=== PATIENT | male | born 1930 | race Caucasian/White ===

== ENCOUNTER → 2017-02-28 | Outpatient (CLI) | payer MEDICARE ==
[2017-02-28 13:32] LABS: AUTOMATED NEUTROPHIL # 3.8 TH/MM3 (1.8-7.7); BASOPHIL % 0.7 % (0.0-2.0); EOSINOPHIL # 0.2 TH/MM3 (0-0.4); EOSINOPHIL % 2.8 % (0.0-4.0); HEMATOCRIT 42.8 % (39.0-51.0); HEMO FLAGS DIFF FINAL; LYMPH % 21.9 % (9.0-44.0); LYMPHOCYTE # 1.2 TH/MM3 (1.0-4.8); MEAN CELL VOLUME 88.6 FL (80.0-100.0); MEAN CORPUSCULAR HEMOGLOBIN 29.6 PG (27.0-34.0); MEAN CORPUSCULAR HGB CONC 33.4 % (32.0-36.0); MONO % 7.6 % (0.0-8.0); PLATELET COUNT 180 TH/MM3 (150-450); RED BLOOD COUNT 4.83 MIL/MM3 (4.50-5.90); RED CELL DISTRIBUTION WIDTH 14.2 % (11.6-17.2); WHITE BLOOD COUNT 5.6 TH/MM3 (4.0-11.0)
[2017-02-28 13:54] LABS: ALT (GPT) 26 U/L (12-78); AMYLASE 67 U/L (25-115); ANION GAP 5 MEQ/L (5-15); AST (GOT) 21 U/L (15-37); BICARBONATE 29.9 MEQ/L (21.0-32.0); BLOOD UREA NITROGEN 20 MG/DL (7-18); CHLORIDE 104 MEQ/L (98-107); GLOMERULAR FILTRATION RATE 52 ML/MIN (>89); GLUCOSE,FASTING 96 MG/DL (74-99); POTASSIUM 4.2 MEQ/L (3.5-5.1); SODIUM (NA) 139 MEQ/L (136-145)
[2017-02-28 14:02] LABS: ALKALINE PHOSPHATASE 89 U/L (45-117); HDL CHOLESTEROL 50.8 MG/DL (40.0-60.0); LDL CHOLESTEROL 119 MG/DL (0-99); TOTAL BILIRUBIN ADULT 0.8 MG/DL (0.2-1.0)
== END ==
LOC: PLAB 08:41
PROVIDERS: ATTEND Family Medicine
DX: R63.4 Abnormal weight loss (principal); E78.2 Mixed hyperlipidemia; R53.83 Other fatigue; R10.84 Generalized abdominal pain
CPT/HCPCS: 36415; 80053; 80061; 82150; 83690; 84443; 85025

== ENCOUNTER → 2017-03-09 | Outpatient (CLI) | payer MEDICARE ==
[2017-03-09 16:53] LABS: APTT (PATIENT) 28.6 SEC (24.3-30.1); PROTHROMBIN TIME - PATIENT 11.3 SEC (9.8-11.6)
[2017-03-09 19:14] LABS: AUTOMATED NEUTROPHIL # 4.4 TH/MM3 (1.8-7.7); BASOPHIL % 0.8 % (0.0-2.0); EOSINOPHIL # 0.1 TH/MM3 (0-0.4); EOSINOPHIL % 2.3 % (0.0-4.0); HEMATOCRIT 42.2 % (39.0-51.0); HEMO FLAGS DIFF FINAL; LYMPH % 15.6 % (9.0-44.0); LYMPHOCYTE # 0.9 TH/MM3 (1.0-4.8); MEAN CELL VOLUME 87.8 FL (80.0-100.0); MEAN CORPUSCULAR HEMOGLOBIN 29.6 PG (27.0-34.0); MEAN CORPUSCULAR HGB CONC 33.7 % (32.0-36.0); MONO % 8.6 % (0.0-8.0); NEUT % 72.7 % (16.0-70.0); PLATELET COUNT 218 TH/MM3 (150-450); RED CELL DISTRIBUTION WIDTH 13.9 % (11.6-17.2); WHITE BLOOD COUNT 6.1 TH/MM3 (4.0-11.0)
== END ==
LOC: PLAB 14:53
PROVIDERS: ATTEND Family Medicine
DX: K86.9 Disease of pancreas, unspecified (principal); E78.2 Mixed hyperlipidemia; R63.4 Abnormal weight loss; R53.83 Other fatigue; R10.84 Generalized abdominal pain; R01.2 Other cardiac sounds
CPT/HCPCS: 36415; 85025; 85610; 85730; 86301

== ENCOUNTER 2017-03-15 06:40 | Day surgery (SDC) | payer MEDICARE ==
[~2017-03-15] VITALS: Ht 177.8 cm; Wt 68.2 kg
[2017-03-15] VITALS (9 sets, daily range): BP systolic 77–101; BP diastolic 51–67; PULSE 58–95; RESP 18–20; TEMP 97.5–98.4; O2SAT 90–98
[2017-03-15] MEDS ORDERED: LIDOCAINE HCL 1% 20 ML VIAL ONE (08:05)
[2017-03-15] MEDS ORDERED: SODIUM CHLORIDE 2 ML FLUSH PRN IV FLUSH (08:15)
[2017-03-15] MEDS ORDERED: SODIUM CHLOR 0.9% 1000 ML IV SCH (08:15)
[2017-03-15] MEDS ORDERED: MIDAZOLAM HCL 5 MG/5 ML VIAL ONE (08:18)
[2017-03-15] MEDS ORDERED: SODIUM CHLORIDE 2 ML FLUSH BID IV FLUSH SCH (09:00)
--- NOTE | 2017-03-15 09:43 | PD.RAD ---
Post CT Procedure Prog Note Pre Procedure Diagnosis: (1) Liver masses (2) Pancreatic mass Post Procedure Diagnosis: (1) Liver masses (2) Pancreatic mass Procedure Date: Mar 15, 2017 Supervising Radiologist: Demario Yadav JR Anesthesia: Conscious Sedation Plan of Activity Patient to Unit: ROPU Patient Condition: Good See PACS Report for procedural detail/treatment Biopsy Imaging Guidance: CT Biopsy Procedure: Liver Specimen: Core Biopsy Findings: 3 core samples of left lobe hepatic lesion in this patient with multiple masses. Plan D/C home in 4 hours. F/U with Dr Jimmie Yadav Jr.,Demario Win MD Mar 15, 2017 09:43
[2017-03-15] MEDS ORDERED: ACETAMINOPHEN 500 MG CPLT PO ONE (11:15)
[2017-03-15] MEDS ORDERED: ONDANSETRON HCL 4 MG/2 ML VIAL IV PUSH ONE (11:15)
--- NOTE | 2017-03-15 15:56 | RADRPT ---
EXAM DATE/TIME: 03/15/2017 08:59 [facility] COMPARISON: No previous studies available for comparison. INDICATIONS : Multiple liver masses. SEDATION TIME: 30 minutes BIOPSY SITE: Right upper quadrant MEDICATION(S): 1.) 1.5 mg midazolam (Versed) IV 2.) 75 mcg fentanyl (Sublimaze) IV DEVICE(S): 1.) 19 gauge micropuncture introducer 2.) 20 gauge Temno core biopsy needle MEDICAL HISTORY : None. SURGICAL HISTORY : None. ENCOUNTER: Initial ACUITY: 1 day PAIN SCORE: 0/10 LOCATION: Right upper quadrant A total of three core specimen(s) were obtained and sent to the laboratory for pathologic evaluation. PROCEDURE: 1. CT guided liver biopsy. Prior to the procedure informed consent was obtained. Any appropriate prior imaging studies were rev iewed. The biopsy was difficult given the location of the lesions. A low-density lesion involving the left lobe of the liver was targeted during the biopsy. Using automated exposure control and adjustment of the mA and/or kV according to patient size, radiat ion dose was kept as low as reasonably achievable to obtain optimal diagnostic quality images. DICOM format image data is available electronically for review and comparison. The site was prepped in a sterile fashion. Full sterile technique was used, including cap, mask, abdoulaye rile gloves and gown and a large sterile sheet. Hand hygiene and 2% chlorhexidine and/or betadine/al cohol prep was utilized per protocol for cutaneous antisepsis. The skin and subcutaneous tissues wer e infiltrated with local anesthetic solution. With CT guidance the previously identified target was localized. Biopsy was performed using the presc ribed needle as above. Adequate hemostasis was obtained with compression at the puncture site. Follow-up CT scan reveals no hemorrhage. The patient tolerated the procedure well and there were no complications. The patient was returned to the Radiology Outpatient Unit in stable condition. CONCLUSION: Uncomplicated CT guided biopsy of a low-density lesion involving the left lobe of the liver in this p atient with multiple hepatic masses. Demario Yadav Jr., MD on March 15, 2017 at 15:53 Board Certified Radiologist. This report was verified electronically.
== END 2017-03-15 14:00 | disposition home or self-care (01) ==
LOC: HRAD 06:40 → HRIP 06:41 → HRAD 14:00
PROVIDERS: ATTEND Family Medicine
DX: C22.9 Malignant neoplasm of liver, not specified as primary or secondary (principal); K86.9 Disease of pancreas, unspecified; E78.2 Mixed hyperlipidemia; R53.83 Other fatigue; R39.11 Hesitancy of micturition; N40.0 Benign prostatic hyperplasia without lower urinary tract symptoms
CPT/HCPCS: 47000; 77012; 88307; 88341; 88342; J2250; J2405; J3010; J7030

== ENCOUNTER 2017-04-25 06:59 | Day surgery (SDC) | payer MEDICARE ==
[~2017-04-25] VITALS: Ht 177.8 cm; Wt 65.9 kg
[2017-04-25] VITALS (8 sets, daily range): BP systolic 89–127; BP diastolic 54–78; PULSE 80–118; RESP 20; TEMP 97.5–98.2; O2SAT 93–100
[2017-04-25] MEDS ORDERED: OXYC1CAP PO (07:12)
[2017-04-25] MEDS ORDERED: SODIUM CHLORIDE 0.9% 1000 ML IV SCH (07:30)
[2017-04-25] MEDS ORDERED: CHLORHEXIDINE GLUCONATE 2 % 1 PACK (2 CLOTHS) TOPICAL SCH (07:30)
[2017-04-25] MEDS ORDERED: POVIDONE IODINE 5% (ANTISEPSIS KIT) 4 APPLICATIONS EACH NARE SCH (07:30)
[2017-04-25] MEDS: ceFAZolin 2 GM PREMIX 50 ML - implanted port/tunneled catheter insertion IV SCH ×2 (07:41→09:53)
[2017-04-25 07:42] LABS: AUTOMATED NEUTROPHIL # 6.6 TH/MM3 (1.8-7.7); BASOPHIL # 0.1 TH/MM3 (0-0.2); BASOPHIL % 0.6 % (0.0-2.0); EOSINOPHIL # 0.2 TH/MM3 (0-0.4); EOSINOPHIL % 2.6 % (0.0-4.0); HEMATOCRIT 37.1 % (39.0-51.0); HEMO FLAGS DIFF FINAL; LYMPH % 12.2 % (9.0-44.0); LYMPHOCYTE # 1.1 TH/MM3 (1.0-4.8); MEAN CELL VOLUME 88.7 FL (80.0-100.0); MEAN CORPUSCULAR HEMOGLOBIN 29.5 PG (27.0-34.0); MEAN CORPUSCULAR HGB CONC 33.3 % (32.0-36.0); MONO % 7.8 % (0.0-8.0); NEUT % 76.8 % (16.0-70.0); PLATELET COUNT 267 TH/MM3 (150-450); RED BLOOD COUNT 4.18 MIL/MM3 (4.50-5.90); RED CELL DISTRIBUTION WIDTH 15.2 % (11.6-17.2); WHITE BLOOD COUNT 8.7 TH/MM3 (4.0-11.0)
[2017-04-25] MEDS: VANCOMYCIN 1000 MG/NS 250 ML - implanted port/tunneled catheter IV SCH ×4 (07:42→09:53)
[2017-04-25 07:52] LABS: APTT (PATIENT) 26.8 SEC (24.3-30.1); PROTHROMBIN TIME - PATIENT 11.6 SEC (9.8-11.6)
[2017-04-25] MEDS ORDERED: MIDAZOLAM HCL 2 MG/2 ML VIAL ONE (08:42)
[2017-04-25] MEDS ORDERED: LIDOCAINE 1%/EPINEPHrine 1:100,000 SOLN 20 ML VIAL ONE (08:52)
[2017-04-25] MEDS ORDERED: SODIUM CHLORIDE 0.9% FLUSH 10 ML FLUSH IVF PRN (09:45)
--- NOTE | 2017-04-25 09:47 | PD.RAD ---
Post Procedure Progress Note Pre Procedure Diagnosis: (1) Pancreatic mass Post Procedure Diagnosis: (1) Pancreatic mass Procedure Date: Apr 25, 2017 Supervising Radiologist: Jesus Alamo Proceduralist/Assist: RT Wander(R), RT Holly(R) Anesthesia: Conscious Sedation Plan of Activity Patient to Unit: ROPU Patient Condition: Good See PACS Report for procedural detail/treatment Central Venous Access Device Procedure 1 Right Internal Jugular Infusaport Placement single lumen Jesus Alamo MD Apr 25, 2017 09:47
--- NOTE | 2017-04-25 09:53 | RADRPT ---
EXAM DATE/TIME: 04/25/2017 08:43 [facility] COMPARISON: No previous studies available for comparison. INDICATIONS : Patient with metastatic pancreatic cancer in need of [id number] placement. MEDICAL HISTORY : HLD SURGICAL HISTORY : Colonoscopy, Liver biopsy ENCOUNTER: Initial ACUITY: 4-6 months PAIN SCORE: 2/10 LOCATION: Abdomen FLUORO TIME: 0.4 minutes IMAGE SERIES: 1 SEDATION TIME: 30 minutes ACCESS: Right internal jugular vein SEDATION: 1.) 1.5 mg midazolam (Versed) IV 2.) 75 mcg fentanyl (Sublimaze) IV Prophylactic antibiotics were administered with appropriate pre-procedure timing. Vancomycin within 2 hours of procedure, Ancef (or alternative) within 1 hour of procedure. DEVICE: 1. 8 [place] single lumen Smart power port with vortex PROCEDURE : 1. Continuous pulse oximetry and EKG monitoring. 2. Intravenous conscious sedation. 3. Ultrasound guidance for venous access. 4. Fluoroscopic guided implantable central venous port placement. The patient was placed supine. The neck was prepped in sterile fashion. Full sterile technique was u sed, including cap, mask, sterile gloves and gown, and a large sterile sheet. Hand hygiene and 2% ch lorhexidine Betadine was utilized per protocol for cutaneous antisepsis with appropriate dry time for site. Sterile gel and sterile probe cover were utilized for ultrasound guidance. The skin and sub cutaneous tissues were infiltrated with local anesthetic solution. Under direct ultrasound guidance, central venous access was accomplished in the targeted vessel. The ultrasound images depicting access guidance were stored and saved to PACS for permanent record. A s ubcutaneous pocket was created using blunt dissection. The port was introduced to the pocket. The c atheter tubing was fed through a subcutaneous tunnel to the venotomy site. The catheter tubing was c ut to a suitable length and then was introduced through a valved Peel-Away sheath and positioned with catheter tubing tip at the cavo-atrial junction level. The pocket incision was closed with subcutic ular Vicryl suture. Steri-Strips were applied. The port was flushed and locked with heparin solutio n per protocol. Sterile dressing was applied to the site. The patient tolerated the procedure well. Conscious sedation was performed with the prescribed dosages and duration as above in the presence of an independent trained radiology nurse to assist in the monitoring of the patient. EKG and oximetry remained stable throughout the procedure. The patient tolerated the procedure well and there were no complications. The patient was sent to post anesthesia recovery in stable condition. CONCLUSION: Uncomplicated ultrasound and fluoroscopic guided implanted central venous port catheter placement as described in detail above. An 8 Venezuelan Power port was placed. Jesus Alamo MD on April 25, 2017 at 9:51 Board Certified Radiologist. This report was verified electronically.
== END 2017-04-25 11:40 | disposition home or self-care (01) ==
LOC: HRIP 06:59 → HROP 06:59
PROVIDERS: ATTEND Internal Medicine
DX: Z45.2 Encounter for adjustment and management of vascular access device (principal); C25.9 Malignant neoplasm of pancreas, unspecified; E78.5 Hyperlipidemia, unspecified
CPT/HCPCS: 36561; 76937; 77001; 85025; 85610; 85730; 99152; 99153; C1788; J0690; J1642; J2250; J3010; J3370; J7030; J7050

== ENCOUNTER 2017-05-04 15:48 | Inpatient (IN) | payer MEDICARE ==
[~2017-05-04] VITALS: Ht 185.4 cm; Wt 78.2 kg
[~2017-05-04 15:48] MED LIST: OXYC1CAP PO
[2017-05-04] MEDS ORDERED: IODIXANOL 320 MG/ML 10 ML VIAL (for Rad CT) IVCONTRAST ONE (15:49)
[2017-05-04 15:52] VITALS: BP 118/76; PULSE 153; RESP 16; TEMP 97.9; O2SAT 98
--- NOTE | 2017-05-04 16:07 | PD ---
HPI Chief Complaint: GI Complaint Time Seen by Provider: 16:06 Travel History International Travel<30 days: No Contact w/Intl Traveler<30days: No Traveled to known affect area: No History of Present Illness HPI 86-year-old male came to the emergency room with his family for his history of vomiting for past 3 days. Patient has been diagnosed with pancreatic cancer. His oncologist is Dr. Schafer. Patient says he has been unable to keep anything down. His last vomit was 5 minutes ago just prior to coming to the room. Patient was atrial fibrillation on the monitor. Upon asking patient did not seem to know of this diagnosis. Planing of vague abdominal pain 5 out of 10 in the midabdominal area that is diffuse. No aggravating or relieving factors. He says he had a port put in one week ago and his chemotherapies, start from tomorrow. He did not have bowel movement for past 2 days and then this morning he had a large bowel movement. PFSH Past Medical History Narrative Medical List of his past medical, surgical, social and family history is reviewed from the nursing note. Cancer: Yes (PANCREATIC CANCER) Cardiovascular Problems: No Diabetes: No Endocrine: No Genitourinary: No Hepatitis: No Hiatal Hernia: No Immune Disorder: No Musculoskeletal: No Neurologic: No Psychiatric: No Reproductive: No Respiratory: No Thyroid Disease: No Past Surgical History Abdominal Surgery: No AICD: No Cardiac Surgery: No Ear Surgery: No Endocrine Surgery: No Eye Surgery: Yes (bilateral cataract) Genitourinary Surgery: No Gynecologic Surgery: No Joint Replacement: No Pacemaker: No Thoracic Surgery: No Social History Substance Use: No Allergies-Medications (Allergen,Severity, Reaction): Coded Allergies: No Known Allergies (Unverified Allergy, Unknown, 04/25/17) patient does not take any medication Comments No known drug allergies. Reported Meds & Prescriptions Reported Meds & Active Scripts Active Reported Finasteride 5 Mg Tab 5 Mg PO DAILY Do not crush. Oxycodone (Oxycodone HCl) 5 Mg Cap 5 Mg PO Q4H PRN Narrative Medication List of his home medications reviewed from the nursing note. Review of Systems Except as stated in HPI: all other systems reviewed are Neg Gastrointestinal: Positive: Nausea, Vomiting, Abdominal Pain Physical Exam Narrative GENERAL: Awake, alert, mild distress, anxious SKIN: Focused skin assessment warm/dry. HEAD: Atraumatic. Normocephalic. EYES: Pupils equal and round. No scleral icterus. No injection or drainage. ENT: No nasal bleeding or discharge. Mucous membranes pink and moist. NECK: Trachea midline. No JVD. CARDIOVASCULAR: Irregularly irregular rhythm, tachycardia. No murmur appreciated. RESPIRATORY: No accessory muscle use. Clear to auscultation. Breath sounds equal bilaterally. GASTROINTESTINAL: Abdomen soft, non-tender, nondistended. Hepatic and splenic margins not palpable. MUSCULOSKELETAL: No obvious deformities. No clubbing. No cyanosis. No edema. NEUROLOGICAL: Awake and alert. No obvious cranial nerve deficits. Motor grossly within normal limits. Normal speech. PSYCHIATRIC: Appropriate mood and affect; insight and judgment normal. Data Data Last Documented VS Vital Signs Date Time Temp Pulse Resp B/P (MAP) Pulse Ox O2 Delivery O2 Flow Rate FiO2 05/04/17 19:05 110 18 106/86 (93) 95 Room Air 05/04/17 15:52 97.9 Orders Orders Complete Blood Count With Diff (05/04/17 16:16) Comprehensive Metabolic Panel (05/04/17 16:16) Lipase (05/04/17 16:16) Prothrombin Time / Inr (Pt) (05/04/17 16:16) Ct Abd/Pel W Iv Contrast(Rout) (05/04/17 16:16) Iv Access Insert/Monitor (05/04/17 16:16) Ecg Monitoring (05/04/17 16:16) Oximetry (05/04/17 16:16) Ondansetron Inj (Zofran Inj) (05/04/17 16:30) Sodium Chloride 0.9% Flush (Ns Flush) (05/04/17 16:30) Sodium Chlorid 0.9% 500 Ml Inj (Ns 500 M (05/04/17 16:30) Electrocardiogram (05/04/17 ) Diltiazem Inj (Cardizem Inj) (05/04/17 18:30) Iodixanol 320 Inj (Rad Ct) (Visipaque 32 (05/04/17 15:49) Sodium Chlorid 0.9% 500 Ml Inj (Ns 500 M (05/04/17 19:00) Labs Laboratory Tests Test 05/04/17 16:38 White Blood Count 9.3 TH/MM3 Red Blood Count 3.82 MIL/MM3 Hemoglobin 11.6 GM/DL Hematocrit 34.2 % Mean Corpuscular Volume 89.6 FL Mean Corpuscular Hemoglobin 30.3 PG Mean Corpuscular Hemoglobin Concent 33.8 % Red Cell Distribution Width 15.6 % Platelet Count 241 TH/MM3 Mean Platelet Volume 7.7 FL Neutrophils (%) (Auto) 90.3 % Lymphocytes (%) (Auto) 3.7 % Monocytes (%) (Auto) 5.9 % Eosinophils (%) (Auto) 0.0 % Basophils (%) (Auto) 0.1 % Neutrophils # (Auto) 8.4 TH/MM3 Lymphocytes # (Auto) 0.3 TH/MM3 Monocytes # (Auto) 0.5 TH/MM3 Eosinophils # (Auto) 0.0 TH/MM3 Basophils # (Auto) 0.0 TH/MM3 CBC Comment DIFF FINAL Differential Comment Prothrombin Time 14.7 SEC Prothromb Time International Ratio 1.5 RATIO Blood Urea Nitrogen 35 MG/DL Creatinine 1.77 MG/DL Random Glucose 138 MG/DL Total Protein 6.4 GM/DL Albumin 3.3 GM/DL Calcium Level 8.7 MG/DL Alkaline Phosphatase 274 U/L Aspartate Amino Transf (AST/SGOT) 696 U/L Alanine Aminotransferase (ALT/SGPT) 837 U/L Total Bilirubin 2.4 MG/DL Sodium Level 120 MEQ/L Potassium Level 4.8 MEQ/L Chloride Level 86 MEQ/L Carbon Dioxide Level 23.2 MEQ/L Anion Gap 11 MEQ/L Estimat Glomerular Filtration Rate 37 ML/MIN Lipase 37 U/L MDM Medical Decision Making Medical Screen Exam Complete: Yes Emergency Medical Condition: Yes Medical Record Reviewed: Yes Interpretation(s) Twelve-lead EKG is reviewed by me. A. fib, left axis deviation, poor over progression, RVR. Heart rate of 144 bpm. Differential Diagnosis Worsening pancreatic cancer, new onset A. fib with RVR, electrolyte abnormalities, small bowel obstruction Narrative Course 7:14 PM blood test results are back. Patient has significant hyponatremia and elevated LFTs. Patient was seen by Dr. Schafer and I read her note from 2016. In that note said he has metastatic pancreatic cancer. His LFTs were elevated but today it is significantly higher than before. I have ordered 20 mg of IV Cardizem given his RVR. Patient had also received 1 L of IV fluid bolus and another 500 L was orders and his blood pressure dropped a little. CT scan is pending to be read. I discussed the case with Dr. Ramirez who is covering for Dr. Hanh lundberg and as per him the management was appropriate so far. He agreed the patient needed to be admitted. I signed the case over to the oncoming physician. Admission will be pending CT scan report. Procedures EKG Prior to Arrival: No Physician Communication Physician Communication Dr. Ramirez Diagnosis Primary Impression: Vomiting Qualified Codes: R11.2 - Nausea with vomiting, unspecified Additional Impressions: Pancreatic cancer Qualified Codes: C25.7 - Malignant neoplasm of other parts of pancreas Elevated liver function tests New onset a-fib Atrial fibrillation with RVR Kalpana Valadez MD May 04, 2017 16:07
[2017-05-04] MEDS ORDERED: SODIUM CHLORIDE 0.9% FLUSH 10 ML FLUSH IV FLUSH PRN ×2 (16:30→21:15)
[2017-05-04] MEDS ORDERED: SODIUM CHLORID 0.9% 500 ML INJ 500 ML IV ONE ×2 (16:30→19:00)
[2017-05-04] MEDS ORDERED: ONDANSETRON HCL 4 MG/2 ML VIAL IVP ONE (16:30)
[2017-05-04 16:54] LABS: AUTOMATED NEUTROPHIL # 8.4 TH/MM3 (1.8-7.7); BASOPHIL % 0.1 % (0.0-2.0); HEMATOCRIT 34.2 % (39.0-51.0); HEMO FLAGS DIFF FINAL; LYMPH % 3.7 % (9.0-44.0); LYMPHOCYTE # 0.3 TH/MM3 (1.0-4.8); MEAN CELL VOLUME 89.6 FL (80.0-100.0); MEAN CORPUSCULAR HEMOGLOBIN 30.3 PG (27.0-34.0); MEAN CORPUSCULAR HGB CONC 33.8 % (32.0-36.0); MONO % 5.9 % (0.0-8.0); NEUT % 90.3 % (16.0-70.0); PLATELET COUNT 241 TH/MM3 (150-450); RED BLOOD COUNT 3.82 MIL/MM3 (4.50-5.90); RED CELL DISTRIBUTION WIDTH 15.6 % (11.6-17.2); WHITE BLOOD COUNT 9.3 TH/MM3 (4.0-11.0)
[2017-05-04 17:03] LABS: INTERNATIONAL NORMALIZED RATIO 1.5 RATIO; PROTHROMBIN TIME - PATIENT 14.7 SEC (9.8-11.6)
[2017-05-04 17:20] LABS: ALKALINE PHOSPHATASE 274 U/L (45-117); ALT (GPT) 837 U/L (12-78); ANION GAP 11 MEQ/L (5-15); AST (GOT) 696 U/L (15-37); BICARBONATE 23.2 MEQ/L (21.0-32.0); BLOOD UREA NITROGEN 35 MG/DL (7-18); CHLORIDE 86 MEQ/L (98-107); GLOMERULAR FILTRATION RATE 37 ML/MIN (>89); POTASSIUM 4.8 MEQ/L (3.5-5.1); TOTAL BILIRUBIN ADULT 2.4 MG/DL (0.2-1.0)
[2017-05-04 17:37] VITALS: BP 123/73; PULSE 134; RESP 22; O2SAT 96
[2017-05-04 17:40] LABS: SODIUM (NA) 120 MEQ/L (136-145)
[2017-05-04 18:19] VITALS: BP 119/84; PULSE 120; RESP 25; O2SAT 96
[2017-05-04] MEDS ORDERED: DILTIAZEM HCL 25 MG/5 ML VIAL IV ONE (18:30)
[2017-05-04 19:05] VITALS: BP 106/86; PULSE 110; RESP 18; O2SAT 95
[2017-05-04] MEDS ORDERED: FINA5TAB2 PO (19:08)
--- NOTE | 2017-05-04 20:05 | RADRPT ---
EXAM DATE/TIME: 05/04/2017 18:23 [facility] COMPARISON: No previous studies available for comparison. INDICATIONS : Nausea, vomiting, anorexia; history of pancreatic cancer. IV CONTRAST: 45 cc Visipaque (iodixanol) IV ORAL CONTRAST: No oral contrast ingested. RADIATION DOSE: 7.31 CTDIvol (mGy) MEDICAL HISTORY : Carcinoma, pancreas. SURGICAL HISTORY : None. ENCOUNTER: Initial ACUITY: 2 days PAIN SCALE: 4/10 LOCATION: Bilateral epigastric. TECHNIQUE: Volumetric scanning of the abdomen and pelvis was performed. Using automated exposure control and adjustment of the mA and/or kV according to patient size, radiation dose was kept as low as reasonably achievable to obtain optimal diagnostic quality images. DICOM format image data is av ailable electronically for review and comparison. FINDINGS: There appears to be a mass at the pancreatic head region. This surrounds the celiac rt lo. There are suspected enlarged lymph nodes in the noelle hepatis region. There are multiple hepat ic masses measuring up to 3.3 cm consistent with widespread metastatic disease of the liver. The sple en and adrenal glands are normal. There is a 4 mm nonobstructing left renal stone. The right kidney is unremarkable. Atherosclerotic calcifications are seen throughout the arterial system. An aneurys m is not seen. There is a mild amount of ascites seen around the liver and spleen, in the right para colic gutter region and in the pelvis. No pelvic mass is seen. There are prostatic calcifications p resent. Moderate right pleural effusion. There is a mild left pleural effusion. There are accompanying area s of suspected atelectasis seen at the posterior lower lungs being worse on the right. There is dege nerative change in the lumbar spine. There is some cystic change at the anterior aspect of the left femoral head. A suspicious bony lesion is not seen. CONCLUSION: 1. 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 There appears to be adenopathy in the upper abdomen and definite metastatic lesions in the liver. There is also ascites seen throughout the alejandro toneal cavity. 2. Moderate right pleural effusion and mild left pleural effusion. 3. 4 mm nonobstructing left renal stone. Quincy Higuera MD on May 04, 2017 at 19:52 Board Certified Radiologist. This report was verified electronically.
--- NOTE | 2017-05-04 20:36 | PD ---
Physical Exam Narrative GENERAL: Well-nourished, well-developed patient. SKIN: Warm and dry. HEAD: Normocephalic EYES: No injection or drainage. ENT: No nasal drainage noted. NECK: Supple, trachea midline. CARDIOVASCULAR: irregular rate and rhythm RESPIRATORY: no increased effort. No accessory muscle use. NEUROLOGICAL: Awake and alert. moves all extremities and sensory grossly within normal limits. Normal speech. Data Data Last Documented VS Vital Signs Date Time Temp Pulse Resp B/P (MAP) Pulse Ox O2 Delivery O2 Flow Rate FiO2 05/04/17 20:55 115 18 137/78 (97) 99 Room Air 05/04/17 15:52 97.9 Orders Orders Complete Blood Count With Diff (05/04/17 16:16) Comprehensive Metabolic Panel (05/04/17 16:16) Lipase (05/04/17 16:16) Prothrombin Time / Inr (Pt) (05/04/17 16:16) Ct Abd/Pel W Iv Contrast(Rout) (05/04/17 16:16) Iv Access Insert/Monitor (05/04/17 16:16) Ecg Monitoring (05/04/17 16:16) Oximetry (05/04/17 16:16) Ondansetron Inj (Zofran Inj) (05/04/17 16:30) Sodium Chloride 0.9% Flush (Ns Flush) (05/04/17 16:30) Sodium Chlorid 0.9% 500 Ml Inj (Ns 500 M (05/04/17 16:30) Electrocardiogram (05/04/17 ) Diltiazem Inj (Cardizem Inj) (05/04/17 18:30) Iodixanol 320 Inj (Rad Ct) (Visipaque 32 (05/04/17 15:49) Sodium Chlorid 0.9% 500 Ml Inj (Ns 500 M (05/04/17 19:00) Vital Signs (05/04/17 20:37) Diltiazem Inj (Cardizem Inj) (05/04/17 20:45) Admit Order (Ed Use Only) (05/04/17 21:06) Labs Laboratory Tests Test 05/04/17 16:38 White Blood Count 9.3 TH/MM3 Red Blood Count 3.82 MIL/MM3 Hemoglobin 11.6 GM/DL Hematocrit 34.2 % Mean Corpuscular Volume 89.6 FL Mean Corpuscular Hemoglobin 30.3 PG Mean Corpuscular Hemoglobin Concent 33.8 % Red Cell Distribution Width 15.6 % Platelet Count 241 TH/MM3 Mean Platelet Volume 7.7 FL Neutrophils (%) (Auto) 90.3 % Lymphocytes (%) (Auto) 3.7 % Monocytes (%) (Auto) 5.9 % Eosinophils (%) (Auto) 0.0 % Basophils (%) (Auto) 0.1 % Neutrophils # (Auto) 8.4 TH/MM3 Lymphocytes # (Auto) 0.3 TH/MM3 Monocytes # (Auto) 0.5 TH/MM3 Eosinophils # (Auto) 0.0 TH/MM3 Basophils # (Auto) 0.0 TH/MM3 CBC Comment DIFF FINAL Differential Comment Prothrombin Time 14.7 SEC Prothromb Time International Ratio 1.5 RATIO Blood Urea Nitrogen 35 MG/DL Creatinine 1.77 MG/DL Random Glucose 138 MG/DL Total Protein 6.4 GM/DL Albumin 3.3 GM/DL Calcium Level 8.7 MG/DL Alkaline Phosphatase 274 U/L Aspartate Amino Transf (AST/SGOT) 696 U/L Alanine Aminotransferase (ALT/SGPT) 837 U/L Total Bilirubin 2.4 MG/DL Sodium Level 120 MEQ/L Potassium Level 4.8 MEQ/L Chloride Level 86 MEQ/L Carbon Dioxide Level 23.2 MEQ/L Anion Gap 11 MEQ/L Estimat Glomerular Filtration Rate 37 ML/MIN Lipase 37 U/L MDM Supervised Visit with KAILEY: No Interpretation(s) CBC & BMP Diagram 05/04/17 16:38 Total Protein 6.4, Albumin 3.3 L, Calcium Level 8.7, Alkaline Phosphatase 274 H , Aspartate Amino Transf (AST/SGOT) 696 H, Alanine Aminotransferase (ALT/SGPT) 837 H, Total Bilirubin 2.4 H Narrative Course Signed over to me to follow CT scan and admit CT without surgical process. Patient will be admitted for rate control with atrial fibrillation, cardizem drip ordered. For hyponatremia and renal insufficiency normal saline ordered. His oncologist has already been called and patient was updated Physician Communication Physician Communication dr feldman agrees to admit Diagnosis Primary Impression: Vomiting Qualified Codes: R11.2 - Nausea with vomiting, unspecified Additional Impressions: Atrial fibrillation with RVR Elevated liver function tests New onset a-fib Pancreatic cancer Qualified Codes: C25.7 - Malignant neoplasm of other parts of pancreas Hyponatremia Admitting Information Admitting Physician Requests: Admit Darcy Marin MD May 04, 2017 20:36
[2017-05-04] MEDS ORDERED: DILTIAZEM INJ 125 MG in SODIUM CHLORIDE 0.9% INJ 100 ML IV PRN (20:45)
[2017-05-04 20:55] VITALS: BP 137/78; PULSE 115; RESP 18; O2SAT 99
[2017-05-04] MEDS ORDERED: NALOXONE HCL 0.4 MG/ML AMP IV PUSH PRN (21:15)
[2017-05-04 22:14] VITALS: BP 127/78; PULSE 99; RESP 18; O2SAT 99
--- NOTE | 2017-05-04 22:44 | HHI.HP ---
[facility] Felicia Samuel MD Admission Diagnosis afib with rvr, hyponatremia, pancreatic cancer Diagnoses: Travel History International Travel<30 Days: No Contact w/Intl Traveler <30 Da: No Traveled to Known Affected Are: No History of Present Illness hx from patient, at bedside, ER physician communication and review of med records nausea vomiting for about 3 days no blood in vomit vomiting only when he eats once or twice a day also has diffuse abdominal pain - right chest mediport placed last week supposed to have chemo start today has black patches in mouth no diarhre no back or red stool no urinary symptoms ddi not eat much never had similar vomitng episodes with pancreatic cancer diagnosis pancreatic cancer diagnosis was in 03/05/2017 was actually having pains for about 2 months before then pancreatic Ca is 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 Review of Systems Except as stated in HPI: all other systems reviewed are Neg Past Family Social History Past Medical History pancreatic cancer stage IV diagnosed 03/05/2017 hyperlipidemia Past Surgical History carpal tunnel sx - bilateral right chest mediport Allergies: Coded Allergies: No Known Allergies (Unverified Allergy, Unknown, 04/25/17) patient does not take any medication Family History mother- of cancer at age 85 uterine Social History used to smoke , quit 40yrs ago used to drink moderately, but quit 40yrs ago no drugs still driving Physical Exam Vital Signs Vital Signs Date Time Temp Pulse Resp B/P (MAP) Pulse Ox O2 Delivery O2 Flow Rate FiO2 05/04/17 22:14 99 18 127/78 (94) 99 Room Air 05/04/17 21:10 117 137/67 05/04/17 20:55 115 18 137/78 (97) 99 Room Air 05/04/17 19:05 110 18 106/86 (93) 95 Room Air 05/04/17 18:19 120 25 119/84 (96) 96 Room Air 05/04/17 17:37 134 22 123/73 (90) 96 Room Air 05/04/17 15:52 97.9 153 16 118/76 (90) 98 Physical Exam GENERAL: This is a well-nourished, well-developed patient, in no apparent distress. SKIN: No rashes, ecchymoses or lesions. Cool and dry. HEAD: Atraumatic. Normocephalic. No temporal or scalp tenderness. EYES: No scleral icterus. No injection or drainage. ENT: Nose without bleeding, purulent drainage or septal hematoma. Airway patent. NECK: Trachea midline. No JVD CARDIOVASCULAR: Regular rate and rhythm without murmurs, gallops, or rubs. RESPIRATORY: Clear to auscultation. Breath sounds equal bilaterally. No wheezes , rales, or rhonchi. GASTROINTESTINAL: Abdomen soft, non-tender, nondistended. No hepato-splenomegaly , or palpable masses. No guarding. MUSCULOSKELETAL: Extremities without clubbing, cyanosis, or edema. No calf tenderness. . NEUROLOGICAL: Awake and alert. Motor and sensory grossly within normal limits Normal speech. Laboratory Laboratory Tests Test 05/04/17 16:38 05/04/17 22:05 White Blood Count 9.3 Red Blood Count 3.82 Hemoglobin 11.6 Hematocrit 34.2 Mean Corpuscular Volume 89.6 Mean Corpuscular Hemoglobin 30.3 Mean Corpuscular Hemoglobin Concent 33.8 Red Cell Distribution Width 15.6 Platelet Count 241 Mean Platelet Volume 7.7 Neutrophils (%) (Auto) 90.3 Lymphocytes (%) (Auto) 3.7 Monocytes (%) (Auto) 5.9 Eosinophils (%) (Auto) 0.0 Basophils (%) (Auto) 0.1 Neutrophils # (Auto) 8.4 Lymphocytes # (Auto) 0.3 Monocytes # (Auto) 0.5 Eosinophils # (Auto) 0.0 Basophils # (Auto) 0.0 CBC Comment DIFF FINAL Differential Comment Prothrombin Time 14.7 Prothromb Time International Ratio 1.5 Blood Urea Nitrogen 35 Creatinine 1.77 Random Glucose 138 Total Protein 6.4 Albumin 3.3 Calcium Level 8.7 Alkaline Phosphatase 274 Aspartate Amino Transf (AST/SGOT) 696 Alanine Aminotransferase (ALT/SGPT) 837 Total Bilirubin 2.4 Sodium Level 120 Potassium Level 4.8 Chloride Level 86 Carbon Dioxide Level 23.2 Anion Gap 11 Estimat Glomerular Filtration Rate 37 Lipase 37 Result Diagram: 05/04/17 1638 05/04/17 1638 Imaging Last 48 hours Impressions Abdomen/Pelvis CT 05/04/17 1616 Signed Impressions: Service Date/Time: April 18:23 - CONCLUSION: 1. 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 There appears to be adenopathy in the upper abdomen and definite metastatic lesions in the liver. There is also ascites seen throughout the peritoneal cavity. 2. Moderate right pleural effusion and mild left pleural effusion. 3. 4 mm nonobstructing left renal stone. Quincy Higuera MD Abdomen Ultrasound 05/04/17 0000 Signed Impressions: Service Date/Time: April 22:53 - CONCLUSION: 1. Similar to what was demonstrated and reported on the CT from 4 hours ago, the liver as abnormal with findings suspicious for metastatic disease. Although the pancreas was not identified on this examination the prior study demonstrated features suspicious for a pancreas mass/neoplasm. 2. There is free fluid within the abdomen around the liver and spleen and there are bilateral pleural effusions. 3. Diffuse gallbladder wall edema. Quincy Gabriel MD Caprini VTE Risk Assessment Caprini VTE Risk Assessment: Mod/High Risk (score >= 2) Caprini Risk Assessment Model Point Value = 1 Point Value = 2 Point Value = 3 Point Value = 5 Age 41-60 Minor surgery BMI > 25 kg/m2 Swollen legs Varicose veins or History of unexplained or recurrent spontaneous Oral contraceptives or hormone replacement Sepsis (< 1 month) Serious lung disease, including pneumonia (< 1 month) Abnormal pulmonary function Acute myocardial infarction Congestive heart failure (< 1 month) History of inflammatory bowel disease Medical patient at bed rest Age 61-74 Arthroscopic surgery Major open surgery (> 45 min) Laparoscopic surgery (> 45 min) Malignancy Confined to bed (> 72 hours) Immobilizing plaster cast Central venous access Age >= 75 History of VTE Family history of VTE Factor V Leiden Prothrombin [id number] Lupus anticoagulant Anticardiolipin antibodies Elevated serum homocysteine Heparin-induced thrombocytopenia Other congenital or acquired thrombophilia Stroke (< 1 month) Elective arthroplasty Hip, pelvis, or leg fracture Acute spinal cord injury (< 1 month) Prophylaxis Regimen Total Risk Factor Score Risk Level Prophylaxis Regimen 0-1 Low Early ambulation 2 Moderate Order ONE of the following: *Sequential Compression Device (SCD) *Heparin 5000 units SQ BID 3-4 Higher Order ONE of the following medications: *Heparin 5000 units SQ TID *Enoxaparin/Lovenox 40 mg SQ daily (WT < 150 kg, CrCl > 30 mL/min) *Enoxaparin/Lovenox 30 mg SQ daily (WT < 150 kg, CrCl > 10-29 mL/min) *Enoxaparin/Lovenox 30 mg SQ BID (WT < 150 kg, CrCl > 30 mL/min) AND/OR *Sequential Compression Device (SCD) 5 or more Highest Order ONE of the following medications: *Heparin 5000 units SQ TID (Preferred with Epidurals) *Enoxaparin/Lovenox 40 mg SQ daily (WT < 150 kg, CrCl > 30 mL/min) *Enoxaparin/Lovenox 30 mg SQ daily (WT < 150 kg, CrCl > 10-29 mL/min) *Enoxaparin/Lovenox 30 mg SQ BID (WT < 150 kg, CrCl > 30 mL/min) AND *Sequential Compression Device (SCD) Assessment and Plan Assessment and Plan Impression: intractable nausea/ vomiting with associated abdominal pain possible cholecystitis/ symptomatic cholelithiasis/cbd stone acute LFT elevation as compared to labs 3 days ago stage IV pancreatic cancer with mets to liver - follows with oncologist Dr oneill new onset afib with RVR - likely from dehydration from GI loss hyperlipidemia BPH Plan: stat labs to follow Na based on this, continue iv NS to correct sodium and hydration US of abdomen CT abdomen and pelvis personally reviewed continue cardizem drip for now- but suspects will be able to wean it down as tachycardia is due to dehydration- HR now 108 on 5mcg resume home meds ASA full dose for anticoagulation for now and pt explained of anticoagulation choices would recommend lovenox 1mg/kg sc daily dose for anticoagulation on this cancer patient- however, advised and pt that they can discuss with their oncologist and start treatment as outpatient pending upcoming procedures, and treatment . dvt prophylaxis while in hospital on lovenox gi prophylaxis on ranitidine Discussed Condition With patient, his , ER physician, nursing staff Physician Certification 2 Midnight Certification Type: Admission for Inpatient Services Order for Inpatient Services The services are ordered in accordance with Medicare regulations or non- Medicare payer requirements, as applicable. In the case of services not specified as inpatient-only, they are appropriately provided as inpatient services in accordance with the 2-midnight benchmark. Estimated LOS (days): 2 days is the estimated time the patient will need to remain in the hospital, assuming treatment plan goals are met and no additional complications. Post-Hospital Plan: Home Lucia Dubois MD May 04, 2017 22:44
[2017-05-04 22:51] LABS: BICARBONATE 21.5 MEQ/L (21.0-32.0); POTASSIUM 5.1 MEQ/L (3.5-5.1)
[2017-05-04] MEDS ORDERED: PILL SPLITTER OTHER PRN (23:30)
--- NOTE | 2017-05-04 23:40 | RADRPT ---
EXAM DATE/TIME: 05/04/2017 22:53 [facility] COMPARISON: CT ABDOMEN & PELVIS W CONTRAST, May 04, 2017, 18:23. INDICATIONS : Abdominal pain. MEDICAL HISTORY : Hearing loss. Dentures. Abdominal pain. Pancreatic cancer. Chemotherapy. SURGICAL HISTORY : Bilateral cataract surgery. Bilateral carpal tunnel. Right chest port. ENCOUNTER: Initial ACUITY: 1 month PAIN SCORE: 3/10 LOCATION: Abdomen. MEASUREMENTS: LIVER: 18.9 cm length COMMON DUCT: 6 mm RIGHT KIDNEY: 10.0 x 4.5 x 3.4 cm LEFT KIDNEY: 10.2 x 3.6 x 4.5 cm SPLEEN: 9.0 cm length AORTA: 1.4cm maximal FINDINGS: LIVER: Abnormal diffuse increased echotexture. There are multiple hypodense lesions identified. Main portal vein is patent. COMMON DUCT: No intraluminal mass or stone visualized. GALLBLADDER: There is diffuse gallbladder wall thickening. No stones are present. PANCREAS: Not visualized. RIGHT KIDNEY: No hydronephrosis, stone or mass. LEFT KIDNEY: No hydronephrosis or mass. There is a 4 mm nonobstructing left renal stone. SPLEEN: No focal lesion. AORTA: Non aneurysmal. There is atherosclerotic disease. IVC: Within normal limits. There is free fluid in the abdomen around the liver and spleen and there are are bilateral pleural ef fusions. CONCLUSION: 1. Similar to what was demonstrated and reported on the CT from 4 hours ago, the liver as abnormal wi th findings suspicious for metastatic disease. Although the pancreas was not identified on this exami nation the prior study demonstrated features suspicious for a pancreas mass/neoplasm. 2. There is free fluid within the abdomen around the liver and spleen and there are bilateral pleural effusions. 3. Diffuse gallbladder wall edema. Quincy Gabriel MD on May 04, 2017 at 23:34 Board Certified Radiologist. This report was verified electronically.
[2017-05-04 23:45] LABS: INDIRECT BILIRUBIN 1.4 MG/DL (0.0-0.8); TOTAL BILIRUBIN ADULT 2.5 MG/DL (0.2-1.0)
[2017-05-05] VITALS (12 sets, daily range): BP systolic 91–125; BP diastolic 55–66; PULSE 74–119; RESP 16–20; TEMP 97.4–98; O2SAT 90–100
[2017-05-05] MEDS: SODIUM CHLOR 0.9% 1000 ML INJ 1,000 ML IV SCH ×3 (00:09→21:49)
[2017-05-05 07:01] LABS: AUTOMATED NEUTROPHIL # 8.7 TH/MM3 (1.8-7.7); BASOPHIL % 0.1 % (0.0-2.0); HEMATOCRIT 32.3 % (39.0-51.0); HEMO FLAGS DIFF FINAL; LYMPH % 3.8 % (9.0-44.0); LYMPHOCYTE # 0.4 TH/MM3 (1.0-4.8); MEAN CELL VOLUME 89.6 FL (80.0-100.0); MEAN CORPUSCULAR HEMOGLOBIN 30.7 PG (27.0-34.0); MEAN CORPUSCULAR HGB CONC 34.2 % (32.0-36.0); MONO % 8.4 % (0.0-8.0); NEUT % 87.7 % (16.0-70.0); PLATELET COUNT 203 TH/MM3 (150-450); RED BLOOD COUNT 3.61 MIL/MM3 (4.50-5.90); RED CELL DISTRIBUTION WIDTH 15.3 % (11.6-17.2); WHITE BLOOD COUNT 9.9 TH/MM3 (4.0-11.0)
[2017-05-05 07:24] LABS: ANION GAP 12 MEQ/L (5-15); BICARBONATE 20.8 MEQ/L (21.0-32.0); BLOOD UREA NITROGEN 40 MG/DL (7-18); CHLORIDE 87 MEQ/L (98-107); GLOMERULAR FILTRATION RATE 29 ML/MIN (>89); POTASSIUM 4.9 MEQ/L (3.5-5.1)
[2017-05-05 07:34] LABS: SODIUM (NA) 120 MEQ/L (136-145)
[2017-05-05 07:40] LABS: ALKALINE PHOSPHATASE 251 U/L (45-117); ALT (GPT) 1531 U/L (12-78); AST (GOT) 1286 U/L (15-37); TOTAL BILIRUBIN ADULT 3.2 MG/DL (0.2-1.0)
[2017-05-05] MEDS: FINASTERIDE 5 MG TAB PO SCH (08:48)
[2017-05-05] MEDS: ASPIRIN EC 325 MG TABEC PO SCH (08:49)
[2017-05-05] MEDS: ENOXAPARIN SODIUM 40 MG/0.4 ML SYRINGE SQ SCH (08:49)
[2017-05-05] MEDS: FAMOTIDINE 20 MG TAB PO SCH ×2 (09:00→21:04)
[2017-05-05] MEDS: SODIUM CHLORIDE 0.9% FLUSH 10 ML FLUSH IV FLUSH SCH ×2 (10:01→21:00)
--- NOTE | 2017-05-05 11:37 | PD.CONS ---
HPI Consult Requested By Primary Care Physician Felicia Samuel MD History of Present Illness 86-year-old male came to the emergency room with his family for his history of vomiting for past 3 days. Patient has been diagnosed with pancreatic cancer. His oncologist is Dr. Schafer. Patient says he has been unable to keep anything down. His last vomit was 5 minutes ago just prior to coming to the room. Patient was atrial fibrillation on the monitor. Upon asking patient did not seem to know of this diagnosis. Planing of vague abdominal pain 5 out of 10 in the midabdominal area that is diffuse. No aggravating or relieving factors. He says he had a port put in one week ago and his chemotherapies, start from tomorrow. He did not have bowel movement for past 2 days and then this morning he had a large bowel movement. Cardiology consulted for Afib with RVR. Currently rate control. Review of Systems Consitutional: COMPLAINS OF: Fatigue, DENIES: Fever, Chills, Weight gain, Weight loss Eyes: DENIES: Amaurosis Fugax, Change in vision HEENT: DENIES: Lightheadedness, Change in hearing Respiratory: DENIES: See HPI, Cough, Snoring, Shortness of breath, Wheezing, Sputum production Cardiovascular: DENIES: See HPI, Chest pain, Palpitations, Syncope, Tachycardia Gastrointestinal: COMPLAINS OF: Nausea, Vomiting, DENIES: Change in bowel habits, Reflux, Bloody stools, Melena Genitourinary: DENIES: Urinary incontinence, Difficulty voiding Integumentary: DENIES: Rash Neurologic: DENIES: Tingling or numbness, Memory problems, Poor Balance, Stroke symptoms Musculoskeletal: DENIES: Joint pain, Muscle pain, Limited range of motion, Back pain Psychiatric: DENIES: Anxiety, Depression, Sleep disturbances Hematologic: DENIES: Bruising tendencies, Bleeding tendencies Endocrine: DENIES: Weight gain, Weight loss, Thyroid disease Past Family Social History Allergies: Coded Allergies: No Known Allergies (Unverified Allergy, Unknown, 04/25/17) patient does not take any medication Past Medical History Pancreatic Cancer with Mets Reported Medications Reported Meds & Active Scripts Active Reported Finasteride 5 Mg Tab 5 Mg PO DAILY Do not crush. Oxycodone (Oxycodone HCl) 5 Mg Cap 5 Mg PO Q4H PRN Active Ordered Medications Current Medications Medications (Trade) Dose Ordered Sig/[place]den Route Start Time Stop Time Status Last Admin Diltiazem HCl 125 mg/Sodium Chloride 125 ml @ 5 mls/hr TITRATE PRN IV 05/04/17 20:45 05/04/17 21:10 (NS Flush) 2 ml UNSCH PRN IV FLUSH 05/04/17 21:15 (NS Flush) 2 ml BID IV FLUSH 05/05/17 09:00 05/05/17 10:01 (Narcan Inj) 0.4 mg UNSCH PRN IV PUSH 05/04/17 21:15 Sodium Chloride 1,000 ml @ 100 mls/hr Q10H IV 05/04/17 23:30 05/05/17 10:00 (Proscar) 5 mg DAILY PO 05/05/17 09:00 05/05/17 08:48 (Roxicodone) 5 mg Q4H PRN PO 05/04/17 23:30 (Ecotrin Ec) 325 mg DAILY PO 05/05/17 09:00 05/05/17 08:49 (Lovenox Inj) 40 mg Q24H SQ 05/05/17 09:00 05/05/17 08:49 (Pepcid) 10 mg BID PO 05/05/17 09:00 05/05/17 09:00 (Pill Splitter) 1 ea UNSCH PRN OTHER 05/04/17 23:30 Family History Noncontributory Physical Exam Vital Signs Vital Signs Date Time Temp Pulse Resp B/P (MAP) Pulse Ox O2 Delivery O2 Flow Rate FiO2 05/05/17 09:10 97.9 96 18 112/65 (81) 05/05/17 07:00 97 Nasal Cannula 0.50 05/05/17 06:00 92 Nasal Cannula 0.50 05/05/17 05:00 93 05/05/17 04:00 107 05/05/17 04:00 97.4 102 19 117/66 (83) 100 05/05/17 03:00 93 05/05/17 02:00 107 05/05/17 01:00 99 05/05/17 01:00 125/66 (85) 05/05/17 00:00 97.8 110 16 91/66 (74) 98 05/05/17 00:00 119 05/04/17 23:50 05/04/17 22:14 99 18 127/78 (94) 99 Room Air 05/04/17 21:10 117 137/67 05/04/17 20:55 115 18 137/78 (97) 99 Room Air 05/04/17 19:05 110 18 106/86 (93) 95 Room Air 05/04/17 18:19 120 25 119/84 (96) 96 Room Air 05/04/17 17:37 134 22 123/73 (90) 96 Room Air 05/04/17 15:52 97.9 153 16 118/76 (90) 98 Laboratory Laboratory Tests Test 05/04/17 16:38 05/04/17 22:05 05/05/17 06:27 White Blood Count 9.3 9.9 Red Blood Count 3.82 3.61 Hemoglobin 11.6 11.1 Hematocrit 34.2 32.3 Mean Corpuscular Volume 89.6 89.6 Mean Corpuscular Hemoglobin 30.3 30.7 Mean Corpuscular Hemoglobin Concent 33.8 34.2 Red Cell Distribution Width 15.6 15.3 Platelet Count 241 203 Mean Platelet Volume 7.7 8.2 Neutrophils (%) (Auto) 90.3 87.7 Lymphocytes (%) (Auto) 3.7 3.8 Monocytes (%) (Auto) 5.9 8.4 Eosinophils (%) (Auto) 0.0 0.0 Basophils (%) (Auto) 0.1 0.1 Neutrophils # (Auto) 8.4 8.7 Lymphocytes # (Auto) 0.3 0.4 Monocytes # (Auto) 0.5 0.8 Eosinophils # (Auto) 0.0 0.0 Basophils # (Auto) 0.0 0.0 CBC Comment DIFF FINAL DIFF FINAL Differential Comment Prothrombin Time 14.7 Prothromb Time International Ratio 1.5 Blood Urea Nitrogen 35 37 40 Creatinine 1.77 1.75 2.15 Random Glucose 138 122 115 Total Protein 6.4 6.0 5.9 Albumin 3.3 3.2 3.2 Calcium Level 8.7 8.2 8.4 Alkaline Phosphatase 274 245 251 Aspartate Amino Transf (AST/SGOT) 696 1059 1286 Alanine Aminotransferase (ALT/SGPT) 837 1233 1531 Total Bilirubin 2.4 2.5 3.2 Sodium Level 120 120 120 Potassium Level 4.8 5.1 4.9 Chloride Level 86 88 87 Carbon Dioxide Level 23.2 21.5 20.8 Anion Gap 11 11 12 Estimat Glomerular Filtration Rate 37 37 29 Lipase 37 31 Direct Bilirubin 1.1 Indirect Bilirubin 1.4 Result Diagram: 05/05/17 0627 05/05/17 0627 Imaging Last Impressions Abdomen/Pelvis CT 05/04/17 1616 Signed Impressions: Service Date/Time: April 18:23 - CONCLUSION: 1. 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 There appears to be adenopathy in the upper abdomen and definite metastatic lesions in the liver. There is also ascites seen throughout the peritoneal cavity. 2. Moderate right pleural effusion and mild left pleural effusion. 3. 4 mm nonobstructing left renal stone. Quincy Higuera MD Abdomen Ultrasound 05/04/17 0000 Signed Impressions: Service Date/Time: April 22:53 - CONCLUSION: 1. Similar to what was demonstrated and reported on the CT from 4 hours ago, the liver as abnormal with findings suspicious for metastatic disease. Although the pancreas was not identified on this examination the prior study demonstrated features suspicious for a pancreas mass/neoplasm. 2. There is free fluid within the abdomen around the liver and spleen and there are bilateral pleural effusions. 3. Diffuse gallbladder wall edema. Quincy Gabriel MD Assessment and Plan Problem List: (1) Atrial fibrillation with RVR ICD Codes: I48.91 - Unspecified atrial fibrillation Status: Acute Plan: 86 y/o M consulted for Afib with RV in the setting of known Pancreatic Cancer with Mets, hyponatremia, transaminitis and complaints of nausea, vomiting and abd pain. Afib currently rate control. He denies any CV complaints. Afib ?new onset in the setting of dehydration. [id number] score 2. Overall prognosis poor. Recommendations: 1. Cont rate control. Wean Cardizem drip. Start Cardizem 30mg PO QID 2. 2Dechocardiogram 3. CHAD2 score 2 chronic OAC recommended if not contraindication given Mets 4. Consult GI and Heme/Onc Thank you for the opportunity to participate in the care of this patient Will be available on a PRN basis for any questions or concerns (2) Liver masses ICD Codes: R16.0 - Hepatomegaly, not elsewhere classified (3) Pancreatic mass ICD Codes: K86.9 - Disease of pancreas, unspecified (4) Hyponatremia ICD Codes: E87.1 - Hypo-osmolality and hyponatremia Status: Acute (5) Pancreatic cancer ICD Codes: C25.9 - Malignant neoplasm of pancreas, unspecified Status: Acute (6) Vomiting ICD Codes: R11.10 - Vomiting, unspecified Status: Acute (7) Elevated liver function tests ICD Codes: R79.89 - Other specified abnormal findings of blood chemistry Status: Acute Problem Qualifiers (1) Pancreatic cancer: Qualified Codes: C25.7 - Malignant neoplasm of other parts of pancreas (2) Vomiting: Qualified Codes: R11.2 - Nausea with vomiting, unspecified Mina Ames MD May 05, 2017 11:37
[2017-05-05] MEDS: DILTIAZEM HCL 30 MG TAB PO SCH ×3 (12:53→21:04)
[2017-05-05 13:03] LABS: BICARBONATE 17.7 MEQ/L (21.0-32.0)
--- NOTE | 2017-05-05 13:59 | PD.CONS ---
HPI Service Nephrology Consult Requested By Dr. 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 Patient has been on diltiazem drip, his appetite is poor and he has nausea and abdominal pains due to pancreatic cancer. Abdomen Showed the Metastatic Liver Disease Is Ascites There Was a 4 mm Nonobstructing Left Kidney Stone. Review of Systems Constitutional: COMPLAINS OF: Fatigue Respiratory: COMPLAINS OF: Shortness of breath Gastrointestinal: COMPLAINS OF: Abdominal pain, Nausea Genitourinary: COMPLAINS OF: Urinary frequency Neurologic: COMPLAINS OF: Abnormal gait Psychiatric: COMPLAINS OF: Anxiety, Depression Past Family Social History Allergies: Coded Allergies: No Known Allergies (Unverified Allergy, Unknown, 04/25/17) patient does not take any medication Past Medical History Pancreatic cancer Nausea vomiting Abdominal pain BPH Past Surgical History Carpal tunnel Cataract Reported Medications Reported Meds & Active Scripts Active Reported Finasteride 5 Mg Tab 5 Mg PO DAILY Do not crush. Oxycodone (Oxycodone HCl) 5 Mg Cap 5 Mg PO Q4H PRN Active Ordered Medications Current Medications Medications (Trade) Dose Ordered Sig/Eden Route Start Time Stop Time Status Last Admin Diltiazem HCl 125 mg/Sodium Chloride 125 ml @ 5 mls/hr TITRATE PRN IV 05/04/17 20:45 05/04/17 21:10 (NS Flush) 2 ml UNSCH PRN IV FLUSH 05/04/17 21:15 (NS Flush) 2 ml BID IV FLUSH 05/05/17 09:00 05/05/17 10:01 (Narcan Inj) 0.4 mg UNSCH PRN IV PUSH 05/04/17 21:15 Sodium Chloride 1,000 ml @ 100 mls/hr Q10H IV 05/04/17 23:30 05/05/17 10:00 (Proscar) 5 mg DAILY PO 05/05/17 09:00 05/05/17 08:48 (Roxicodone) 5 mg Q4H PRN PO 05/04/17 23:30 (Ecotrin Ec) 325 mg DAILY PO 05/05/17 09:00 05/05/17 08:49 (Lovenox Inj) 40 mg Q24H SQ 05/05/17 09:00 05/05/17 08:49 (Pepcid) 10 mg BID PO 05/05/17 09:00 05/05/17 09:00 (Pill Splitter) 1 ea UNSCH PRN OTHER 05/04/17 23:30 (Cardizem) 30 mg QID PO 05/05/17 13:00 05/05/17 12:53 Family History Mother had ovarian cancer Social History He used to smoke about stopped many years ago denies any alcohol use Physical Exam Vital Signs Vital Signs Date Time Temp Pulse Resp B/P (MAP) Pulse Ox O2 Delivery O2 Flow Rate FiO2 05/05/17 13:10 98.0 95 98/66 (77) 05/05/17 09:10 97.9 96 18 112/65 (81) 05/05/17 07:00 97 Nasal Cannula 0.50 05/05/17 06:00 92 Nasal Cannula 0.50 05/05/17 05:00 93 05/05/17 04:00 107 05/05/17 04:00 97.4 102 19 117/66 (83) 100 05/05/17 03:00 93 05/05/17 02:00 107 05/05/17 01:00 99 05/05/17 01:00 125/66 (85) 05/05/17 00:00 97.8 110 16 91/66 (74) 98 05/05/17 00:00 119 05/04/17 23:50 05/04/17 22:14 99 18 127/78 (94) 99 Room Air 05/04/17 21:10 117 137/67 05/04/17 20:55 115 18 137/78 (97) 99 Room Air 05/04/17 19:05 110 18 106/86 (93) 95 Room Air 05/04/17 18:19 120 25 119/84 (96) 96 Room Air 05/04/17 17:37 134 22 123/73 (90) 96 Room Air 05/04/17 15:52 97.9 153 16 118/76 (90) 98 Physical Exam GENERAL: Well-nourished, well-developed patient. SKIN: Warm and dry. HEAD: Normocephalic. EYES: No scleral icterus. No injection or drainage. NECK: Supple, trachea midline. No JVD or lymphadenopathy. CARDIOVASCULAR: Irregularly irregular RESPIRATORY: Breath sounds equal bilaterally. No accessory muscle use. GASTROINTESTINAL: Abdomen soft, non-tender, nondistended. EXTREMITIES: No cyanosis, or edema. NEUROLOGICAL: Awake, alert, and oriented x 3. Non-focal. Laboratory Laboratory Tests Test 05/04/17 16:38 05/04/17 22:05 05/05/17 06:27 05/05/17 11:51 White Blood Count 9.3 9.9 Red Blood Count 3.82 3.61 Hemoglobin 11.6 11.1 Hematocrit 34.2 32.3 Mean Corpuscular Volume 89.6 89.6 Mean Corpuscular Hemoglobin 30.3 30.7 Mean Corpuscular Hemoglobin Concent 33.8 34.2 Red Cell Distribution Width 15.6 15.3 Platelet Count 241 203 Mean Platelet Volume 7.7 8.2 Neutrophils (%) (Auto) 90.3 87.7 Lymphocytes (%) (Auto) 3.7 3.8 Monocytes (%) (Auto) 5.9 8.4 Eosinophils (%) (Auto) 0.0 0.0 Basophils (%) (Auto) 0.1 0.1 Neutrophils # (Auto) 8.4 8.7 Lymphocytes # (Auto) 0.3 0.4 Monocytes # (Auto) 0.5 0.8 Eosinophils # (Auto) 0.0 0.0 Basophils # (Auto) 0.0 0.0 CBC Comment DIFF FINAL DIFF FINAL Differential Comment Prothrombin Time 14.7 Prothromb Time International Ratio 1.5 Blood Urea Nitrogen 35 37 40 Creatinine 1.77 1.75 2.15 Random Glucose 138 122 115 Total Protein 6.4 6.0 5.9 Albumin 3.3 3.2 3.2 Calcium Level 8.7 8.2 8.4 Alkaline Phosphatase 274 245 251 Aspartate Amino Transf (AST/SGOT) 696 1059 1286 Alanine Aminotransferase (ALT/SGPT) 837 1233 1531 Total Bilirubin 2.4 2.5 3.2 Sodium Level 120 120 120 Potassium Level 4.8 5.1 4.9 Chloride Level 86 88 87 Carbon Dioxide Level 23.2 21.5 20.8 Anion Gap 11 11 12 Estimat Glomerular Filtration Rate 37 37 29 Lipase 37 31 Direct Bilirubin 1.1 Indirect Bilirubin 1.4 Thyroid Stimulating Hormone 3rd Gen 4.120 Test 05/05/17 11:57 Blood Urea Nitrogen 40 Creatinine 2.33 Random Glucose 112 Calcium Level 8.5 Sodium Level 118 Potassium Level 5.0 Chloride Level 88 Carbon Dioxide Level 17.7 Anion Gap 12 Estimat Glomerular Filtration Rate 27 Result Diagram: 05/05/17 0627 05/05/17 1157 Imaging Last Impressions Abdomen/Pelvis CT 05/04/17 1616 Signed Impressions: Service Date/Time: April 18:23 - CONCLUSION: 1. 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 There appears to be adenopathy in the upper abdomen and definite metastatic lesions in the liver. There is also ascites seen throughout the peritoneal cavity. 2. Moderate right pleural effusion and mild left pleural effusion. 3. 4 mm nonobstructing left renal stone. Quincy Higuera MD Abdomen Ultrasound 05/04/17 0000 Signed Impressions: Service Date/Time: April 22:53 - CONCLUSION: 1. Similar to what was demonstrated and reported on the CT from 4 hours ago, the liver as abnormal with findings suspicious for metastatic disease. Although the pancreas was not identified on this examination the prior study demonstrated features suspicious for a pancreas mass/neoplasm. 2. There is free fluid within the abdomen around the liver and spleen and there are bilateral pleural effusions. 3. Diffuse gallbladder wall edema. Quincy Gabriel MD Assessment and Plan Problem List: (1) Acute renal failure ICD Codes: N17.9 - Acute kidney failure, unspecified Plan: Patient has nausea and vomiting and has hyponatremia due to multifactorial reasons, acute renal failure also his multifactorial has dysfunctional liver causing hepatorenal syndrome and nausea and vomiting as well Can give him a short course of 3% hypertonic saline 25 cc/hr Follow sodium (2) Hyponatremia ICD Codes: E87.1 - Hypo-osmolality and hyponatremia Status: Acute Plan: As above (3) Pancreatic mass ICD Codes: K86.9 - Disease of pancreas, unspecified Plan: Stage IV pancreatic cancer poor prognosis (4) Liver masses ICD Codes: R16.0 - Hepatomegaly, not elsewhere classified Plan: Liver dysfunction (5) Atrial fibrillation with RVR ICD Codes: I48.91 - Unspecified atrial fibrillation Status: Acute Plan: Continue to monitor on diltiazem Problem Qualifiers (1) Acute renal failure: Qualified Codes: N17.9 - Acute kidney failure, unspecified Kylah Villavicencio MD May 05, 2017 13:59
[2017-05-05] MEDS ORDERED: 3% SALINE INJ 250 ML IV ONE (14:15)
--- NOTE | 2017-05-05 14:50 | HHI.PR ---
Subjective Remarks Patient denies dyspnea abdominal pain nausea or vomiting. Discussed with patient's daughter and at bedside. Patient denies headache. Objective Vitals Vital Signs Date Time Temp Pulse Resp B/P (MAP) Pulse Ox O2 Delivery O2 Flow Rate FiO2 05/05/17 13:10 98.0 95 98/66 (77) 05/05/17 09:10 97.9 96 18 112/65 (81) 05/05/17 07:00 97 Nasal Cannula 0.50 05/05/17 06:00 92 Nasal Cannula 0.50 05/05/17 05:00 93 05/05/17 04:00 107 05/05/17 04:00 97.4 102 19 117/66 (83) 100 05/05/17 03:00 93 05/05/17 02:00 107 05/05/17 01:00 99 05/05/17 01:00 125/66 (85) 05/05/17 00:00 97.8 110 16 91/66 (74) 98 05/05/17 00:00 119 05/04/17 23:50 05/04/17 22:14 99 18 127/78 (94) 99 Room Air 05/04/17 21:10 117 137/67 05/04/17 20:55 115 18 137/78 (97) 99 Room Air 05/04/17 19:05 110 18 106/86 (93) 95 Room Air 05/04/17 18:19 120 25 119/84 (96) 96 Room Air 05/04/17 17:37 134 22 123/73 (90) 96 Room Air 05/04/17 15:52 97.9 153 16 118/76 (90) 98 I/O 05/04/17 05/04/17 05/04/17 05/05/17 05/05/17 05/05/17 07:00 15:00 23:00 07:00 15:00 23:00 Intake Total 2120 ml 100 ml Balance 2120 ml 100 ml Intake Oral 120 ml 100 ml IV Total 2000 ml # Voids 1 1 Result Diagram: 05/05/17 0627 05/05/17 1157 Objective Remarks GENERAL: Pleasant elderly male patient in no apparent distress. SKIN: Warm and dry. HEAD: Normocephalic. EYES: No scleral icterus. No injection or drainage. NECK: Supple, trachea midline. No JVD or lymphadenopathy. CARDIOVASCULAR: Irregularly irregular rate and rhythm without murmurs, gallops, or rubs. RESPIRATORY: Breath sounds equal bilaterally. No accessory muscle use. GASTROINTESTINAL: Abdomen soft, non-tender, nondistended. EXTREMITIES: No pedal edema. NEUROLOGICAL: Awake, alert, and oriented x 3. Non-focal. A/P Assessment and Plan 86 yo CM recently diagnosied with stage IV pancreatic cancer with mets to liver presents to hospital for nausea and vomiting 1. Marked elevation of liver enzymes - possibly due to liver metastases from pancreatic cancer versus hepatorenal syndrome. Hepatitis profile pending. GI consulted for opinion. Gallbladder wall is thickened and abdominal ultrasound, no stones are present. 2. Severe hyponatremia - likely due to dehydration, possible hepatorenal syndrome. Appears asymptomatic at this time. Patient being given 250 mL of hypertonic saline 3% at 25 mL per hour. Continue serial BMPs. Continue normal saline IV fluids at 100 mL per hour. Appreciate nephrology seeing this patient. 3. Acute kidney injury - possible hepatorenal syndrome, also has dehydration due to n/v. Continue IV fluids, nephrology following. 4. Nausea and vomiting - improved. 5. New onset afib with RVR - likely from dehydration from GI loss - status post Cardizem drip heart rate now controlled on by mouth Cardizem 30 mg 4 times a day. Continue aspirin 325 mg daily and Lovenox 40 mg subcutaneous daily. Appreciate cardiology. 2-D echo pending. 6. Pancreatic cancer with metastasis to the liver - patient wanting to pursue aggressive treatment. Discussed with Dr. Schafer. She had offered hospice to the patient however patient declined. He has a right Ascjcd-h-Kill and chemotherapy was going to be initiated however patient then declined. Currently too ill for chemotherapy. DVT px - lovenox 40 mg sq daily. Poor prognosis. Jaja Snell MD May 05, 2017 14:50
--- NOTE | 2017-05-05 14:53 | PD.CONS ---
HPI History of Present Illness This is a 86 year old male with pancreatic cancer, who presented to the emergency room abnormal labs. He was diagnosed with pancreatic cancer in March 2017. He reports that he had been having vague abdominal pain and bloating since the summer. He has had multiple tests done as an outpatient, when he was found to have "two spots on my liver." He ended up having a liver biopsy and was told that he had pancreatic cancer. 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 He went to the [facility] on April 18 and was told that the first line treatment would be chemotherapy with Gemcitabine and Abraxane x 4 months. He is now followed by Dr. Schafer and was scheduled to start chemotherapy, but was found to have abnormal labs with elevated LFTs. He was therefore referred to the emergency room for further evaluation. He was noted to have elevated LFTs on arrival with T. Bili 3.2, AST 1286, ALT 1531, Alk Phosph 251. CT Scan abdomen and pelvis with iv contrast (05/04/17)---> Pancreatic head mass surrounding the celiac arteries. There appears to be adenopathy in the upper abdomen and definite metastatic lesions in the liver. There is also ascites seen throughout the peritoneal cavity. Moderate right pleural effusion and mild left pleural effusion. 4 mm nonobstructing left renal stone. US (05/04/17)--> Similar to what was demonstrated and reported on the CT from 4 hours ago, the liver as abnormal with findings suspicious for metastatic disease. Although the pancreas was not identified on this examination the prior study demonstrated features suspicious for a pancreas mass/neoplasm. There is free fluid within the abdomen around the live rand spleen and there are bilateral pleural effusions, diffuse gallbladder wall edema. He denies any known history of liver problems or cirrhosis. He reports that he was not on any medications at until the past few months when he was diagnosed with cancer. He reports that he recently started finasteride for his BPH and Oxycodone for abdominal pain. He does not take Acetaminophen products. He states that for several months he's been having intermittent abdominal pain and bloating. He describes the pain as a constant pressure or dull ache with intermittent shooting sharp pains. This is not related to food intake. He occasionally has nausea associated with this. He also has associated bloating. He recently started taking oxycodone for the pain and reports that this has caused him constipation. As a result he's been taking MiraLAX and Senokot for this. He has had decreased appetite with a 40 lb weight loss over the past 4 months. He is also taking a protein milkshakes from the [employer] food store although he is not sure what this is. Of note he was noted to have atrial fibrillation with RVR and was started on a Cardizem drip. She has not had any significant episodes of hypotension documented in the EMR. (Tri Cohn) PFSH Past Medical History Pancreatic cancer stage IV, liver mets diagnosed 03/05/2017 Hyperlipidemia BPH Constipation Chronic abdominal pain Past Surgical History Bilateral carpal tunnel syndrome Cataract surgery Infusaport (Tri Cohn) Coded Allergies: No Known Allergies (Unverified Allergy, Unknown, 04/25/17) patient does not take any medication Medications Allergies Coded Allergies Type Severity Reaction Last Updated Verified No Known Allergies Allergy Unknown 04/25/17 No Active Scripts Medications Dose Route/Sig Max Daily Dose Days Date Category Dose Instructions Finasteride 5 Mg Tab 5 Mg PO DAILY 05/04/17 Reported Do not crush. Oxycodone (Oxycodone HCl) 5 Mg Cap 5 Mg PO Q4H PRN 04/25/17 Reported Miralax Senokot Family History Mother from uterine cancer Social History Quit smoking 40 years ago Quit drinking heavily 40 years ago, was drinking occasionally up until 2 months ago. No illicit drug use (Tri Cohn) Review of Systems Constitutional: COMPLAINS OF: Fatigue, Weight loss (40 lbs weight loss), Change in appetite Respiratory: DENIES: Cough Cardiovascular: DENIES: Chest pain Gastrointestinal: COMPLAINS OF: Abdominal pain, Constipation, Nausea, Vomiting , Anorexia, Swelling of Abdomen, DENIES: Black stools, Bloody stools, Diarrhea, Heartburn Hematologic/lymphatic: DENIES: Bruising Neurologic: DENIES: Headache Psychiatric: DENIES: Confusion (Tri Cohn) GI Exam Vitals I&O Vital Signs Date Time Temp Pulse Resp B/P (MAP) Pulse Ox O2 Delivery O2 Flow Rate FiO2 05/05/17 13:10 98.0 95 98/66 (77) 05/05/17 09:10 97.9 96 18 112/65 (81) 05/05/17 07:00 97 Nasal Cannula 0.50 05/05/17 06:00 92 Nasal Cannula 0.50 05/05/17 05:00 93 05/05/17 04:00 107 05/05/17 04:00 97.4 102 19 117/66 (83) 100 05/05/17 03:00 93 05/05/17 02:00 107 05/05/17 01:00 99 05/05/17 01:00 125/66 (85) 05/05/17 00:00 97.8 110 16 91/66 (74) 98 05/05/17 00:00 119 05/04/17 23:50 05/04/17 22:14 99 18 127/78 (94) 99 Room Air 05/04/17 21:10 117 137/67 05/04/17 20:55 115 18 137/78 (97) 99 Room Air 05/04/17 19:05 110 18 106/86 (93) 95 Room Air 05/04/17 18:19 120 25 119/84 (96) 96 Room Air 05/04/17 17:37 134 22 123/73 (90) 96 Room Air 05/04/17 15:52 97.9 153 16 118/76 (90) 98 I/O 05/04/17 05/04/17 05/04/17 05/05/17 05/05/17 05/05/17 07:00 15:00 23:00 07:00 15:00 23:00 Intake Total 2120 ml 100 ml Balance 2120 ml 100 ml Intake Oral 120 ml 100 ml IV Total 2000 ml # Voids 1 1 Imaging Last Impressions Abdomen/Pelvis CT 05/04/17 1616 Signed Impressions: Service Date/Time: April 18:23 - CONCLUSION: 1. 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 There appears to be adenopathy in the upper abdomen and definite metastatic lesions in the liver. There is also ascites seen throughout the peritoneal cavity. 2. Moderate right pleural effusion and mild left pleural effusion. 3. 4 mm nonobstructing left renal stone. Quincy Higuera MD Abdomen Ultrasound 05/04/17 0000 Signed Impressions: Service Date/Time: April 22:53 - CONCLUSION: 1. Similar to what was demonstrated and reported on the CT from 4 hours ago, the liver as abnormal with findings suspicious for metastatic disease. Although the pancreas was not identified on this examination the prior study demonstrated features suspicious for a pancreas mass/neoplasm. 2. There is free fluid within the abdomen around the liver and spleen and there are bilateral pleural effusions. 3. Diffuse gallbladder wall edema. Quincy Gabriel MD Laboratory Test 05/04/17 16:38 05/04/17 22:05 05/05/17 06:27 05/05/17 11:51 White Blood Count 9.3 TH/MM3 9.9 TH/MM3 Red Blood Count 3.82 MIL/MM3 3.61 MIL/MM3 Hemoglobin 11.6 GM/DL 11.1 GM/DL Hematocrit 34.2 % 32.3 % Mean Corpuscular Volume 89.6 FL 89.6 FL Mean Corpuscular Hemoglobin 30.3 PG 30.7 PG Mean Corpuscular Hemoglobin Concent 33.8 % 34.2 % Red Cell Distribution Width 15.6 % 15.3 % Platelet Count 241 TH/MM3 203 TH/MM3 Mean Platelet Volume 7.7 FL 8.2 FL Neutrophils (%) (Auto) 90.3 % 87.7 % Lymphocytes (%) (Auto) 3.7 % 3.8 % Monocytes (%) (Auto) 5.9 % 8.4 % Eosinophils (%) (Auto) 0.0 % 0.0 % Basophils (%) (Auto) 0.1 % 0.1 % Neutrophils # (Auto) 8.4 TH/MM3 8.7 TH/MM3 Lymphocytes # (Auto) 0.3 TH/MM3 0.4 TH/MM3 Monocytes # (Auto) 0.5 TH/MM3 0.8 TH/MM3 Eosinophils # (Auto) 0.0 TH/MM3 0.0 TH/MM3 Basophils # (Auto) 0.0 TH/MM3 0.0 TH/MM3 CBC Comment DIFF FINAL DIFF FINAL Differential Comment Prothrombin Time 14.7 SEC Prothromb Time International Ratio 1.5 RATIO Blood Urea Nitrogen 35 MG/DL 37 MG/DL 40 MG/DL Creatinine 1.77 MG/DL 1.75 MG/DL 2.15 MG/DL Random Glucose 138 MG/DL 122 MG/DL 115 MG/DL Total Protein 6.4 GM/DL 6.0 GM/DL 5.9 GM/DL Albumin 3.3 GM/DL 3.2 GM/DL 3.2 GM/DL Calcium Level 8.7 MG/DL 8.2 MG/DL 8.4 MG/DL Alkaline Phosphatase 274 U/L 245 U/L 251 U/L Aspartate Amino Transf (AST/SGOT) 696 U/L 1059 U/L 1286 U/L Alanine Aminotransferase (ALT/SGPT) 837 U/L 1233 U/L 1531 U/L Total Bilirubin 2.4 MG/DL 2.5 MG/DL 3.2 MG/DL Sodium Level 120 MEQ/L 120 MEQ/L 120 MEQ/L Potassium Level 4.8 MEQ/L 5.1 MEQ/L 4.9 MEQ/L Chloride Level 86 MEQ/L 88 MEQ/L 87 MEQ/L Carbon Dioxide Level 23.2 MEQ/L 21.5 MEQ/L 20.8 MEQ/L Anion Gap 11 MEQ/L 11 MEQ/L 12 MEQ/L Estimat Glomerular Filtration Rate 37 ML/MIN 37 ML/MIN 29 ML/MIN Lipase 37 U/L 31 U/L Direct Bilirubin 1.1 MG/DL Indirect Bilirubin 1.4 MG/DL Thyroid Stimulating Hormone 3rd Gen 4.120 uIU/ML Test 05/05/17 11:57 Blood Urea Nitrogen 40 MG/DL Creatinine 2.33 MG/DL Random Glucose 112 MG/DL Calcium Level 8.5 MG/DL Sodium Level 118 MEQ/L Potassium Level 5.0 MEQ/L Chloride Level 88 MEQ/L Carbon Dioxide Level 17.7 MEQ/L Anion Gap 12 MEQ/L Estimat Glomerular Filtration Rate 27 ML/MIN Physical Examination HEENT: Normocephalic; atraumatic; + jaundice CHEST: CTA CARDIAC: Irregular ABDOMEN: Mildly distended, mild diffuse tenderness; no hepatosplenomegaly; bowel sounds are present in all four quadrants. EXTREMITIES: No clubbing, cyanosis, or edema. SKIN: + jaundice. 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 (Tri Cohn) Assessment and Plan Plan ASSESSMENT: - Acute Hepatitis, unclear etiology. Pt with known pancreatic cancer, was scheduled to start chemotherapy yesterday and was found to have abnormal labs. CT Scan abdomen and pelvis with iv contrast (05/04/17) ---> Pancreatic head mass surrounding the celiac arteries. There appears to be adenopathy in the upper abdomen and definite metastatic lesions in the liver. There is also ascites seen throughout the peritoneal cavity. Moderate right pleural effusion and mild left pleural effusion. 4 mm nonobstructing left renal stone. US (05/04/17)--> Similar to what was demonstrated and reported on the CT from 4 hours ago, the liver as abnormal with findings suspicious for metastatic disease. Although the pancreas was not identified on this examination the prior study demonstrated features suspicious for a pancreas mass/neoplasm. There is free fluid within the abdomen around the live rand spleen and there are bilateral pleural effusions, diffuse gallbladder wall edema. Hx ETOH abuse, quit drinking heavily 40 years ago. Was still drinking occasionally up until 2 months ago. (+) new meds- Oxycodone, Proscar, Miralax, Senokot over the past few months. Takes a protein shake from [employer] stool. Did have Afib with RVR. No significant hypotension documented. Unclear etiology, ? shocked liver, medication induced. Will get MRCP to r/o obstruction, tylenol level, liver workup. - Coagulopathy. PT 14.7, INR 1.5. - Abdominal pain, bloating. 4 month hx of diffuse pressure/bloating. Takes oxycodone at home. - Constipation, secondary to pain meds. Last colonoscopy was 3-[address] Morrison. Miralax, Senokot. - Decreased appetite, 40 lb weight loss. - MILDRED with severe electrolyte abnormalities. 2.33. Renal following. - Atrial fibrillation with RVR. Started on Cardizem gtt. - Stage IV pancreatic cancer with mets to liver. Dx in March 2017. Evaluated at [facility] on April 18 and was told that the first line treatment would be chemotherapy with Gemcitabine and Abraxane x 4 months. Followed here by Dr. Schafer and was scheduled to start chemotherapy 05/04, but was found to have abnormal labs with elevated LFTs and sent to ER. PLAN: - Clear liquids - MRCP - Acetaminophen level - Ammonia level - Hepatitis profile - AFP level - CHI, AMA, ASMA - Ceruloplasmin, Alpha 1 Antitrypsin - Ferritin, Iron saturation - Troponin, CPK - CBC, PT/INR, CMP - Avoid hypotension - Avoid hepatotoxins - Supportive care - Further recommendations to follow based on results of above - Pt seen and examined by Dr. Collier and myself and this note is written on her behalf (Tri Cohn) Physician Comments seen, examined agree with above cortisol level fu mrcp, blood work -better control of hr currently sob , not stable for any invasive procedures unless emergency (Jana Collier MD) Tri Cohn May 05, 2017 14:53 Jana Collier MD May 05, 2017 18:56
--- NOTE | 2017-05-05 16:03 | EKG ---
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
[2017-05-05 17:35] LABS: ANION GAP 15 MEQ/L (5-15); BICARBONATE 17.3 MEQ/L (21.0-32.0); BLOOD UREA NITROGEN 43 MG/DL (7-18); CHLORIDE 87 MEQ/L (98-107); GLOMERULAR FILTRATION RATE 24 ML/MIN (>89); POTASSIUM 5.2 MEQ/L (3.5-5.1)
[2017-05-05 17:40] LABS: ACETAMINOPHEN LESS THAN 2.0 MCG/ML (10.0-30.0)
[2017-05-05 17:41] LABS: SODIUM (NA) 119 MEQ/L (136-145)
[2017-05-05 17:58] LABS: FERRITIN 3723 NG/ML (26-388); TRANSFERRIN IRON PROFILE 201 MG/DL (200-360)
[2017-05-05] MEDS ORDERED: ATROPINE SULFATE 1 MG/10 ML SYRINGE ONE (21:01)
[2017-05-05] MEDS ORDERED: EPINEPHrine HCL (1:10,000) 1 MG/10 ML SYRINGE ONE (21:01)
[2017-05-05] MEDS ORDERED: LORazepam 2 MG/ML VIAL ONE (23:33)
[2017-05-05 23:43] LABS: BICARBONATE 15.1 MEQ/L (21.0-32.0)
[2017-05-05] MEDS ORDERED: LORazepam 2 MG/ML VIAL IV PUSH ONE (23:45)
--- NOTE | 2017-05-05 23:49 | PD.CONS ---
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 His oncologist is Dr. Schafer. Patient has been unable to keep anything down. In the emergency department he was found to be in atrial fibrillation with rapid and regular rate, which is new diagnosis for him. He was also complaining of vague abdominal pain 5 out of 10 in the midabdominal area that is diffuse. He has infusing port and was planned to start chemotherapy at [facility] however was send back to primary care physician and now to emergency department because of abnormal labs, worsening renal failure and declining urine output. Review of Systems ROS Unable to obtain patient is confused Past Family Social History Allergies: Coded Allergies: No Known Allergies (Unverified Allergy, Unknown, 04/25/17) patient does not take any medication Past Medical History pancreatic cancer stage IV diagnosed 03/05/2017 hyperlipidemia Past Surgical History carpal tunnel sx - bilateral right chest mediport Reported Medications Reported Meds & Active Scripts Active Reported Finasteride 5 Mg Tab 5 Mg PO DAILY Do not crush. Oxycodone (Oxycodone HCl) 5 Mg Cap 5 Mg PO Q4H PRN Active Ordered Medications Current Medications Medications (Trade) Dose Ordered Sig/Eden Route PRN Reason Start Time Stop Time Status Last Admin Dose Admin Diltiazem HCl 125 mg/Sodium Chloride 125 ml @ 5 mls/hr TITRATE PRN IV tachycardia 05/04/17 20:45 05/04/17 21:10 Sodium Chloride (NS Flush) 2 ml UNSCH PRN IV FLUSH FLUSH AFTER USING IV ACCESS 05/04/17 21:15 Sodium Chloride (NS Flush) 2 ml BID IV FLUSH 05/05/17 09:00 05/05/17 10:01 Naloxone HCl (Narcan Inj) 0.4 mg UNSCH PRN IV PUSH SEE LABEL COMMENTS 05/04/17 21:15 Sodium Chloride 1,000 ml @ 100 mls/hr Q10H IV 05/04/17 23:30 05/05/17 21:49 Finasteride (Proscar) 5 mg DAILY PO 05/05/17 09:00 05/05/17 08:48 Oxycodone HCl (Roxicodone) 5 mg Q4H PRN PO PAIN 1-10 05/04/17 23:30 05/05/17 18:47 Aspirin (Ecotrin Ec) 325 mg DAILY PO 05/05/17 09:00 05/05/17 08:49 Enoxaparin Sodium (Lovenox Inj) 40 mg Q24H SQ 05/05/17 09:00 05/05/17 08:49 Famotidine (Pepcid) 10 mg BID PO 05/05/17 09:00 05/05/17 21:04 Miscellaneous (Pill Splitter) 1 ea UNSCH PRN OTHER SEE LABEL COMMENTS 05/04/17 23:30 Diltiazem HCl (Cardizem) 30 mg QID PO 05/05/17 13:00 05/05/17 21:04 Sodium Chloride 250 ml @ 25 mls/hr ONCE ONCE IV 05/05/17 14:15 05/06/17 00:14 05/05/17 15:17 Family History mother- of cancer at age 85 uterine Social History used to smoke , quit 40yrs ago used to drink moderately, but quit 40yrs ago no drugs Physical Exam Vital Signs Vital Signs Date Time Temp Pulse Resp B/P (MAP) Pulse Ox O2 Delivery O2 Flow Rate FiO2 05/05/17 21:30 94 Nasal Cannula 2.00 05/05/17 21:01 97 05/05/17 21:00 97.5 74 20 99/55 (70) 90 05/05/17 21:00 92 Nasal Cannula 2.00 05/05/17 18:00 97.5 96 112/66 (81) 05/05/17 13:10 98.0 95 98/66 (77) 05/05/17 09:10 97.9 96 18 112/65 (81) 05/05/17 07:00 97 Nasal Cannula 0.50 05/05/17 06:00 92 Nasal Cannula 0.50 05/05/17 05:00 93 05/05/17 04:00 107 05/05/17 04:00 97.4 102 19 117/66 (83) 100 05/05/17 03:00 93 05/05/17 02:00 107 05/05/17 01:00 99 05/05/17 01:00 125/66 (85) 05/05/17 00:00 97.8 110 16 91/66 (74) 98 05/05/17 00:00 119 05/04/17 23:50 Physical Exam GENERAL: Elderly gentleman, confused, in moderate distress SKIN: Warm and dry. HEAD: Normocephalic. EYES: No scleral icterus. No injection or drainage. NECK: Supple, trachea midline. No JVD or lymphadenopathy. CARDIOVASCULAR: Regular rate and rhythm without murmurs, gallops, or rubs. RESPIRATORY: Breath sounds equal bilaterally. No accessory muscle use. GASTROINTESTINAL: Abdomen soft, nondistended, tender to palpation in mid epigastrium MUSCULOSKELETAL: No cyanosis, or edema. BACK: Nontender without obvious deformity. NEURO EXAM: Mental Status: The patient is alert and confused, agitated with normal speech. Cranial Nerves: Visual camacho normal in all quadrants. Pupils are round, reactive to light. Reflexes: Biceps, patellar, and Achilles are 2/4 bilaterally. No clonus. Laboratory Laboratory Tests Test 05/05/17 06:27 05/05/17 11:51 05/05/17 11:57 05/05/17 15:48 White Blood Count 9.9 Red Blood Count 3.61 Hemoglobin 11.1 Hematocrit 32.3 Mean Corpuscular Volume 89.6 Mean Corpuscular Hemoglobin 30.7 Mean Corpuscular Hemoglobin Concent 34.2 Red Cell Distribution Width 15.3 Platelet Count 203 Mean Platelet Volume 8.2 Neutrophils (%) (Auto) 87.7 Lymphocytes (%) (Auto) 3.8 Monocytes (%) (Auto) 8.4 Eosinophils (%) (Auto) 0.0 Basophils (%) (Auto) 0.1 Neutrophils # (Auto) 8.7 Lymphocytes # (Auto) 0.4 Monocytes # (Auto) 0.8 Eosinophils # (Auto) 0.0 Basophils # (Auto) 0.0 CBC Comment DIFF FINAL Differential Comment Blood Urea Nitrogen 40 40 Creatinine 2.15 2.33 Random Glucose 115 112 Total Protein 5.9 Albumin 3.2 Calcium Level 8.4 8.5 Alkaline Phosphatase 251 Aspartate Amino Transf (AST/SGOT) 1286 Alanine Aminotransferase (ALT/SGPT) 1531 Total Bilirubin 3.2 Sodium Level 120 118 Potassium Level 4.9 5.0 Chloride Level 87 88 Carbon Dioxide Level 20.8 17.7 Anion Gap 12 12 Estimat Glomerular Filtration Rate 29 27 Thyroid Stimulating Hormone 3rd Gen 4.120 Ammonia 22 Test 05/05/17 16:24 05/05/17 16:50 05/05/17 18:10 05/05/17 20:27 Total Creatine Kinase 258 Troponin I 0.09 Blood Urea Nitrogen 43 Creatinine 2.59 Random Glucose 115 Calcium Level 8.5 Sodium Level 119 Potassium Level 5.2 Chloride Level 87 Carbon Dioxide Level 17.3 Anion Gap 15 Estimat Glomerular Filtration Rate 24 Iron Level 47 Total Iron Binding Capacity 281 Percent Iron Saturation 16.7 Ferritin 3723 Tumor Marker Alpha Fetoprotein 2.8 Acetaminophen Level LESS THAN 2.0 Urine Random Creatinine 143.3 Urine Random Sodium LESS THAN 5 Test 05/05/17 21:30 05/05/17 23:08 Result Diagram: 05/05/17 0627 05/05/17 1650 Assessment and Plan Assessment and Plan Altered mental status - Severe hyponatremia - ICU psychosis - 3% normal saline - When necessary meds for agitation Elevated transaminases - Underlying metastatic liver disease - Extensive workup per gastroenterology Severe hyponatremia - likely due to dehydration - hypertonic saline 3% at 25 mL per hour - IV fluids per nephrology Acute kidney injury - dehydration due to nausea vomiting - possible hepatorenal syndrome, - IV fluids - Nephrology input is appreciated Nausea and vomiting - Zofran when necessary - improved Atrial fibrillation with RVR - New onset - Volume loss - Rate controlled with by mouth Cardizem - Continue aspirin 325 mg - Lovenox 40 mg subcutaneous daily - Cardiology consult with Dr. Hewitt appreciated Pancreatic cancer with metastasis to the liver - Management per Dr. Schafer - Currently too ill for chemotherapy BPH - Finasteride DVT GI prophylaxis - Teds SCDs - Subcutaneous Lovenox - Pepcid Critical Care: The total critical care time was 35 minutes. Time to perform other separately billable procedures was not included in the critical care time. Zeke Navarrete MD May 05, 2017 11:49 pm
[2017-05-06] VITALS (12 sets, daily range): BP systolic 97–137; BP diastolic 54–69; PULSE 68–111; RESP 16–28; TEMP 97.5–98.4; O2SAT 95–96
--- NOTE | 2017-05-06 00:09 | MB ---
cc: LITTLE CÁRDENAS MD DATE OF CONSULTATION 05/05/17 DATE OF 1930 CHIEF COMPLAINT 1. Metastatic pancreatic cancer. HISTORY OF PRESENT ILLNESS Mr. Parker is a very pleasant 86-year-old gentleman who was admitted to the hospital with worsening abdominal pain and liver function tests, intractable nausea and vomiting. He was initially diagnosed with pancreatic cancer this fall after he developed periumbilical abdominal pain. He was found to have a lesion in the head of the pancreas as well as diffuse metastatic disease to the liver. Biopsy revealed adenocarcinoma. CA19-9 was greater than 65,000. He wanted to be considered for clinical trial and was seen at [facility] to discuss clinical trial and standard treatment for pancreatic cancer if he was not currently a candidate for clinical trial. He was not a candidate for any current clinical trials and was recommended to proceed with gemcitabine/abraxane. He was seen in clinic on and at that point in time the patient had had a significant decline in his performance status, intractable nausea and vomiting, decreased ability to keep food down, constipation. At that point in time he was found to have abnormal labs to include a sodium level that was decreased, elevated bilirubin and an elevated AST and ALT. He was admitted to the hospital. He has been evaluated by multiple services and he is also having hallucinations since he has been inpatient. PAST MEDICAL HISTORY 1. Metastatic pancreatic cancer. 2. Hyperlipidemia. PAST SURGICAL HISTORY 1. Carpal tunnel surgery bilateral. 2. Chest wall port placement. ALLERGIES No known drug allergies. FAMILY HISTORY Mother had history of uterine cancer. SOCIAL HISTORY Quit smoking many years ago. Quit drinking many years ago. Denies drug use. Good support system with and daughter. REVIEW OF SYSTEMS NEURO: Positive hallucinations. GI: Positive for abdominal pain, nausea, vomiting, constipation. All other review of systems negative. PHYSICAL EXAMINATION GENERAL: Frail, elderly man. SKIN: No rashes. HEAD: Normocephalic, atraumatic. EYES: With mild scleral icterus present. EARS/NOSE/THROAT: Oropharynx mouth with dark mucosal spots present on bilateral buccal mucosa and lips. NECK: Supple with no palpable lymphadenopathy. CARDIOVASCULAR: Irregular rhythm with no murmurs. RESPIRATORY: Clear to auscultation. GASTROINTESTINAL: Soft. Suspicious for development of Sister Mel Burrows nodule. Tender to palpation on the periumbilical area. NEUROLOGICAL: Alert and oriented, however, he is having hallucinations. ASSESSMENT/PLAN 1. Metastatic pancreatic cancer with severe decline in performance status as well as laboratory abnormalities. He is currently not a candidate for chemotherapy, at this point chemotherapy would do more harm than good. Discussed multiorgan failure and other abnormalities with the patient and family to include hyponatremia and elevated AST, ALT, hyperbilirubinemia, acute renal disease Discussed I was worried that he has multiorgan failure as he is nearing from pancreatic cancer. Also, when he was in clinic on discussed hospice with patient. He reports that he wants to be as aggressive as possible. He wants to do everything with the goal being to get better to receive chemotherapy and eventually reach a cure for his pancreatic cancer. He report that hospice "Would be like I was quitting." Long discussion with Chuyita and daughter in the room. Discussed DNR/ DNI status including chest compression and intubation. The patient reports that even if one chest compression works it will have been worth it. He wants to, be full code. His reports that she does not want him to in the hospital and she would eventually would like to have him on hospice therapy and to have him at home. Discussed this family in the room and Mr. Parker reports, again, that he at this point in time does not want to go on hospice, wants to be proceed with treatment of current medical issues and to go on to receive treatment for his malignancy. and daughter agree with his wishes at this time. Will continue to move forward with aggressive therapy. Discussed with primary team that he would likely need to be transferred to the ICU due to severity of laboratory values, intermittent agitation/hallicunations. He is scheduled for an MRCP tomorrow; Will continue to follow while inpatient. Little Cárdenas MD PINA/EO /11:20 PM /11:31 PM MTDGurmeet
[2017-05-06 03:49] LABS: AUTOMATED NEUTROPHIL # 13.7 TH/MM3 (1.8-7.7); BASOPHIL % 0.1 % (0.0-2.0); HEMATOCRIT 31.8 % (39.0-51.0); HEMO FLAGS DIFF FINAL; LYMPH % 1.3 % (9.0-44.0); LYMPHOCYTE # 0.2 TH/MM3 (1.0-4.8); MEAN CORPUSCULAR HEMOGLOBIN 30.5 PG (27.0-34.0); MEAN CORPUSCULAR HGB CONC 33.6 % (32.0-36.0); MONO % 10.4 % (0.0-8.0); NEUT % 88.2 % (16.0-70.0); PLATELET COUNT 154 TH/MM3 (150-450); RED BLOOD COUNT 3.49 MIL/MM3 (4.50-5.90); RED CELL DISTRIBUTION WIDTH 15.2 % (11.6-17.2); WHITE BLOOD COUNT 15.5 TH/MM3 (4.0-11.0)
[2017-05-06 04:17] LABS: BICARBONATE 15.1 MEQ/L (21.0-32.0); POTASSIUM 5.6 MEQ/L (3.5-5.1)
[2017-05-06] MEDS: SODIUM CHLOR 0.9% 1000 ML INJ 1,000 ML IV SCH (05:30)
[2017-05-06] MEDS: ASPIRIN EC 325 MG TABEC PO SCH (09:00)
[2017-05-06] MEDS: FINASTERIDE 5 MG TAB PO SCH (09:00)
[2017-05-06] MEDS: DILTIAZEM HCL 30 MG TAB PO SCH ×4 (09:00→20:19)
[2017-05-06] MEDS: FAMOTIDINE 20 MG TAB PO SCH ×2 (09:00→20:19)
--- NOTE | 2017-05-06 09:58 | RADRPT ---
EXAM DATE/TIME: 05/06/2017 08:49 [facility] COMPARISON: CT ABDOMEN & PELVIS W CONTRAST, May 04, 2017, 18:23. INDICATIONS : Pancreatic mass. MEDICAL HISTORY : Metastatic, liver. Carcinoma, pancreas. SURGICAL HISTORY : Port placement. ENCOUNTER: Initial ACUITY: 1 day PAIN SCORE: 4/10 LOCATION: Abdomen. TECHNIQUE: Multiplanar, multisequence magnetic resonance imaging of the abdomen was performed. High-resolution 3D dataset was utilized to reconstruct maximum-intensity projection (MIP) images. FINDINGS: INTRAHEPATIC BILE DUCTS: Within normal limits. No significant anatomical variant is present. EXTRAHEPATIC BILE DUCTS: The common bile duct measures 3 mm. No stone or filling defect is identified. GALLBLADDER: No stones, wall thickening, or pericholecystic fluid. LIVER: Diffusely heterogeneous and contains numerous masses. Small amount of abdominal ascites. PANCREAS: Suspected pancreatic head mass. CONCLUSION: 1. Suspected pancreatic head mass with extensive metastatic disease throughout the liver. 2. No intra-articular hepatic biliary duct dilatation. 3. Abdominal ascites. Angelito Kohli MD on May 06, 2017 at 9:49 Board Certified Radiologist. This report was verified electronically.
[2017-05-06] MEDS: ENOXAPARIN SODIUM 40 MG/0.4 ML SYRINGE SQ SCH (11:00)
[2017-05-06] MEDS: SODIUM CHLORIDE 0.9% FLUSH 10 ML FLUSH IV FLUSH SCH ×2 (11:01→20:19)
--- NOTE | 2017-05-06 11:10 | HHI.NPPN ---
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 Additional Remarks Patient is sleepy after given Ativan, with nasal cannula, not in distress. Objective Data Data Vital Signs Date Time Temp Pulse Resp B/P (MAP) Pulse Ox O2 Delivery O2 Flow Rate FiO2 05/06/17 08:00 98.3 71 22 97/55 (69) 96 05/06/17 08:00 71 05/06/17 06:00 76 05/06/17 04:00 97.8 68 24 98/54 (69) 95 05/06/17 04:00 68 05/06/17 02:00 71 05/06/17 00:00 75 05/06/17 00:00 97.5 75 28 100/69 (79) 96 05/05/17 22:00 87 05/05/17 21:30 94 Nasal Cannula 2.00 05/05/17 21:01 97 05/05/17 21:00 97.5 74 20 99/55 (70) 90 05/05/17 21:00 92 Nasal Cannula 2.00 05/05/17 18:00 97.5 96 112/66 (81) 05/05/17 13:10 98.0 95 98/66 (77) -: 05/06/17 0315 05/06/17 0315 Physical Exam General Appearance: Comfortable, Sleeping Eyes Eye Exam: Pupils Equal Throat Throat Exam: Oral Mucosa [place] & Moist Neck Neck Exam: Neck Supple Pulmonary Resp Exam: Rhonchi, Decreased Bases, Diminished Breath Sounds Gastrointestinal/Abdomen GI Exam: Soft, Non-Tender, Bowel Sounds Present, Distended Extremeties Extremities Exam: Trace Edema Neurologic Neuro Exam: Sedated Assessment/Plan Problem List: (1) Acute renal failure ICD Codes: N17.9 - Acute kidney failure, unspecified Plan: Patient has nausea and vomiting and has hyponatremia due to multifactorial reasons, acute renal failure also his multifactorial has dysfunctional liver causing hepatorenal syndrome and nausea and vomiting as well Patient has more than 300 ml of urine in the bladder. Could not get Nieves's catheter, will need urology. K is 5.6, give NaHco3 and add NaHco3 in the IVF and Hco3 is also low. (2) Hyponatremia ICD Codes: E87.1 - Hypo-osmolality and hyponatremia Status: Acute Plan: As above (3) Pancreatic mass ICD Codes: K86.9 - Disease of pancreas, unspecified Plan: Stage IV pancreatic cancer poor prognosis (4) Liver masses ICD Codes: R16.0 - Hepatomegaly, not elsewhere classified Plan: Liver dysfunction (5) Atrial fibrillation with RVR ICD Codes: I48.91 - Unspecified atrial fibrillation Status: Acute Plan: Continue to monitor on diltiazem Problem Qualifiers (1) Acute renal failure: Qualified Codes: N17.9 - Acute kidney failure, unspecified Eben Hall MD May 06, 2017 11:10
[2017-05-06] MEDS ORDERED: SODIUM BICARBONATE 8.4% INJ 50 MEQ/50 ML SYR IV PUSH ONE (11:15)
[2017-05-06 12:41] LABS: BICARBONATE 15.5 MEQ/L (21.0-32.0)
--- NOTE | 2017-05-06 12:44 | PD.CONS ---
HPI Service Urology Consult Requested By Reason for Consult Urinary retention, difficult goodrich Primary Care Physician Felicia Samuel MD Diagnosis: History of Present Illness 86-year-old male with metastatic pancreatic cancer now seen in consultation for urinary retention and difficult Goodrich placement. Patient has not void adequately since admits with ladder scans greater than 300 cc. patient does not complain of any pain. Denies any hematuria, no fevers or chills. Cr elevated to over 3. Review of Systems ROS Limitations: Clinical Condition Constitutional: DENIES: Fever Endocrine: DENIES: Heat/cold intolerance Eyes: DENIES: Blurred vision Ears, nose, mouth, throat: DENIES: Hearing loss Respiratory: DENIES: Cough Cardiovascular: DENIES: Chest pain Gastrointestinal: DENIES: Abdominal pain Genitourinary: DENIES: Hematuria Musculoskeletal: COMPLAINS OF: Joint pain, Back pain Neurologic: DENIES: Headache Psychiatric: DENIES: Anxiety Except as stated in HPI: all other systems reviewed are Neg Past Family Social History Past Medical History pancreatic cancer stage IV diagnosed 03/05/2017 hyperlipidemia Past Surgical History carpal tunnel sx - bilateral right chest mediport Reported Medications Reported Meds & Active Scripts Active Reported Finasteride 5 Mg Tab 5 Mg PO DAILY Do not crush. Oxycodone (Oxycodone HCl) 5 Mg Cap 5 Mg PO Q4H PRN Allergies: Coded Allergies: No Known Allergies (Unverified Allergy, Unknown, 04/25/17) patient does not take any medication Active Ordered Medications Current Medications Medications (Trade) Dose Ordered Sig/Eden Route Start Time Stop Time Status Last Admin Diltiazem HCl 125 mg/Sodium Chloride 125 ml @ 5 mls/hr TITRATE PRN IV 05/04/17 20:45 05/04/17 21:10 (NS Flush) 2 ml UNSCH PRN IV FLUSH 05/04/17 21:15 (NS Flush) 2 ml BID IV FLUSH 05/05/17 09:00 05/06/17 20:19 (Narcan Inj) 0.4 mg UNSCH PRN IV PUSH 05/04/17 21:15 (Proscar) 5 mg DAILY PO 05/05/17 09:00 05/05/17 08:48 (Roxicodone) 5 mg Q4H PRN PO 05/04/17 23:30 05/05/17 18:47 (Ecotrin Ec) 325 mg DAILY PO 05/05/17 09:00 05/05/17 08:49 (Pepcid) 10 mg BID PO 05/05/17 09:00 05/05/17 21:04 (Pill Splitter) 1 ea UNSCH PRN OTHER 05/04/17 23:30 (Cardizem) 30 mg QID PO 05/05/17 13:00 05/05/17 21:04 Sodium Bicarbonate 75 meq/Sodium Chloride 1,075 ml @ 100 mls/hr [id number] IV 05/06/17 23:30 (Lovenox Inj) 30 mg Q24H SQ 05/07/17 09:00 (Lactulose Liq) 30 ml BID PO 05/06/17 21:00 (Xifaxan) 550 mg BID PO 05/06/17 21:00 Family History mother- of cancer at age 85 uterine Social History used to smoke , quit 40yrs ago used to drink moderately, but quit 40yrs ago no drugs still driving Physical Exam Vital Signs Date Time Temp Pulse Resp B/P (MAP) Pulse Ox O2 Delivery O2 Flow Rate FiO2 05/06/17 10:00 69 05/06/17 08:00 98.3 71 22 97/55 (69) 96 05/06/17 08:00 71 05/06/17 07:00 94 Nasal Cannula 2.00 05/06/17 06:00 76 05/06/17 04:00 97.8 68 24 98/54 (69) 95 05/06/17 04:00 68 05/06/17 02:00 71 05/06/17 00:00 75 05/06/17 00:00 97.5 75 28 100/69 (79) 96 05/05/17 22:00 87 05/05/17 21:30 94 Nasal Cannula 2.00 05/05/17 21:01 97 05/05/17 21:00 97.5 74 20 99/55 (70) 90 05/05/17 21:00 92 Nasal Cannula 2.00 05/05/17 18:00 97.5 96 112/66 (81) 05/05/17 13:10 98.0 95 98/66 (77) Physical Exam GENERAL: This is a well-nourished, well-developed patient SKIN: No rashes, ecchymoses or lesions. Cool and dry. HEAD: Atraumatic. Normocephalic. EYES: No scleral icterus. No injection or drainage. ENT: Nose without bleeding, purulent drainage Airway patent. NECK: Trachea midline. CARDIOVASCULAR: Normal pulses RESPIRATORY: Nonlabored GASTROINTESTINAL: Abdomen soft, non-tender, nondistended. GENITOURINARY: Circumcised phallus; Evidence of hypospadias with small pinpoint urethral opening noted at the anterior distal glans. There is a normal appearing glanular cleft, however this is blind ending with actual meatus just inferior to this. MUSCULOSKELETAL: Extremities without clubbing, cyanosis, or edema. . NEUROLOGICAL: . Motor and sensory grossly within normal limits. Lab results reviewed: Yes Laboratory Tests Test 05/05/17 15:48 05/05/17 16:24 05/05/17 16:50 05/05/17 18:10 Ammonia 22 Total Creatine Kinase 258 Troponin I 0.09 Blood Urea Nitrogen 43 Creatinine 2.59 Random Glucose 115 Calcium Level 8.5 Sodium Level 119 Potassium Level 5.2 Chloride Level 87 Carbon Dioxide Level 17.3 Anion Gap 15 Estimat Glomerular Filtration Rate 24 Iron Level 47 Total Iron Binding Capacity 281 Percent Iron Saturation 16.7 Ferritin 3723 Tumor Marker Alpha Fetoprotein 2.8 Acetaminophen Level LESS THAN 2.0 Urine Random Creatinine 143.3 Urine Random Sodium LESS THAN 5 Test 05/05/17 20:27 05/05/17 21:30 05/05/17 23:08 05/06/17 03:15 Random Cortisol 223.9 Nasal Screen MRSA (PCR) MRSA NOT DETECTED Blood Urea Nitrogen 52 51 Creatinine 3.24 3.24 Random Glucose 107 98 Calcium Level 8.1 8.1 Sodium Level 121 121 Potassium Level 5.0 5.6 Chloride Level 88 90 Carbon Dioxide Level 15.1 15.1 Anion Gap 18 16 Estimat Glomerular Filtration Rate 18 18 White Blood Count 15.5 Red Blood Count 3.49 Hemoglobin 10.7 Hematocrit 31.8 Mean Corpuscular Volume 91.0 Mean Corpuscular Hemoglobin 30.5 Mean Corpuscular Hemoglobin Concent 33.6 Red Cell Distribution Width 15.2 Platelet Count 154 Mean Platelet Volume 8.2 Neutrophils (%) (Auto) 88.2 Lymphocytes (%) (Auto) 1.3 Monocytes (%) (Auto) 10.4 Eosinophils (%) (Auto) 0.0 Basophils (%) (Auto) 0.1 Neutrophils # (Auto) 13.7 Lymphocytes # (Auto) 0.2 Monocytes # (Auto) 1.6 Eosinophils # (Auto) 0.0 Basophils # (Auto) 0.0 CBC Comment DIFF FINAL Differential Comment Test 05/06/17 11:20 Result Diagram: 05/06/175 05/06/17 0315 Personally reviewed images: No Imaging Last Impressions Cholangiopancreatography MRI 05/06/17 0000 Signed Impressions: Service Date/Time: Saturday, May 06, 2017 08:49 - CONCLUSION: 1. Suspected pancreatic head mass with extensive metastatic disease throughout the liver. 2. No intra-articular hepatic biliary duct dilatation. 3. Abdominal ascites. Angelito Kohli MD Abdomen/Pelvis CT 05/04/17 1616 Signed Impressions: Service Date/Time: April 18:23 - CONCLUSION: 1. 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 There appears to be adenopathy in the upper abdomen and definite metastatic lesions in the liver. There is also ascites seen throughout the peritoneal cavity. 2. Moderate right pleural effusion and mild left pleural effusion. 3. 4 mm nonobstructing left renal stone. Quincy Higuera MD Abdomen Ultrasound 05/04/17 0000 Signed Impressions: Service Date/Time: April 22:53 - CONCLUSION: 1. Similar to what was demonstrated and reported on the CT from 4 hours ago, the liver as abnormal with findings suspicious for metastatic disease. Although the pancreas was not identified on this examination the prior study demonstrated features suspicious for a pancreas mass/neoplasm. 2. There is free fluid within the abdomen around the liver and spleen and there are bilateral pleural effusions. 3. Diffuse gallbladder wall edema. Quincy Gabriel MD Assessment and Plan Problem List: (1) Pancreatic cancer ICD Code: C25.9 - Malignant neoplasm of pancreas, unspecified Status: Acute (2) Acute renal failure ICD Code: N17.9 - Acute kidney failure, unspecified Assessment and Plan: Attempted placement of a 16 Niuean catheter was unsuccessful. Identification of this distal hypospadias was then dilated up to approximately 14 Niuean. Following this a 14 Niuean urethral catheter was successfully placed through the urethra into the bladder with clear urine return. Maintain Goodrich catheter in place throughout hospitalization. Patient may be discharged with the catheter in place with follow up in urology clinic for a voiding trial. Please call with questions. Problem Qualifiers (1) Pancreatic cancer: Qualified Codes: C25.7 - Malignant neoplasm of other parts of pancreas (2) Acute renal failure: Qualified Codes: N17.9 - Acute kidney failure, unspecified Antonino Colunga MD May 06, 2017 12:44
--- NOTE | 2017-05-06 13:00 | HHI.CCPN ---
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 His oncologist is Dr. Schafer. Patient has been unable to keep anything down. In the emergency department he was found to be in atrial fibrillation with rapid and regular rate, which is new diagnosis for him. He was also complaining of vague abdominal pain 5 out of 10 in the midabdominal area that is diffuse. He has infusing port and was planned to start chemotherapy at [facility] however was send back to primary care physician and now to emergency department because of abnormal labs, worsening renal failure and declining urine output. 05/06: Drowsy, minimal tachypnea noted. On nasal cannula Objective Vital Signs Date Time Temp Pulse Resp B/P (MAP) Pulse Ox O2 Delivery O2 Flow Rate FiO2 05/06/17 12:00 80 05/06/17 08:00 98.3 22 97/55 (69) 96 05/06/17 07:00 Nasal Cannula 2.00 Intake and Output 05/06/17 05/06/17 05/07/17 08:00 16:00 00:00 Intake Total 1084 ml Output Total 0 ml Balance 1084 ml Result Diagram: 05/06/17 0315 05/06/17 1120 Other Results Laboratory Tests Test 05/05/17 15:48 05/05/17 16:24 05/05/17 16:50 05/05/17 18:10 Ammonia 22 MCMOL/L Total Creatine Kinase 258 U/L Troponin I 0.09 NG/ML Blood Urea Nitrogen 43 MG/DL Creatinine 2.59 MG/DL Random Glucose 115 MG/DL Calcium Level 8.5 MG/DL Sodium Level 119 MEQ/L Potassium Level 5.2 MEQ/L Chloride Level 87 MEQ/L Carbon Dioxide Level 17.3 MEQ/L Anion Gap 15 MEQ/L Estimat Glomerular Filtration Rate 24 ML/MIN Iron Level 47 MCG/DL Total Iron Binding Capacity 281 MCG/DL Percent Iron Saturation 16.7 % Ferritin 3723 NG/ML Tumor Marker Alpha Fetoprotein 2.8 NG/ML Acetaminophen Level LESS THAN 2.0 MCG/ML Urine Random Creatinine 143.3 MG/DL Urine Random Sodium LESS THAN 5 MEQ/L Test 05/05/17 20:27 05/05/17 21:30 05/05/17 23:08 05/06/17 03:15 Random Cortisol 223.9 MCG/DL Nasal Screen MRSA (PCR) MRSA NOT DETECTED Blood Urea Nitrogen 52 MG/DL 51 MG/DL Creatinine 3.24 MG/DL 3.24 MG/DL Random Glucose 107 MG/DL 98 MG/DL Calcium Level 8.1 MG/DL 8.1 MG/DL Sodium Level 121 MEQ/L 121 MEQ/L Potassium Level 5.0 MEQ/L 5.6 MEQ/L Chloride Level 88 MEQ/L 90 MEQ/L Carbon Dioxide Level 15.1 MEQ/L 15.1 MEQ/L Anion Gap 18 MEQ/L 16 MEQ/L Estimat Glomerular Filtration Rate 18 ML/MIN 18 ML/MIN White Blood Count 15.5 TH/MM3 Red Blood Count 3.49 MIL/MM3 Hemoglobin 10.7 GM/DL Hematocrit 31.8 % Mean Corpuscular Volume 91.0 FL Mean Corpuscular Hemoglobin 30.5 PG Mean Corpuscular Hemoglobin Concent 33.6 % Red Cell Distribution Width 15.2 % Platelet Count 154 TH/MM3 Mean Platelet Volume 8.2 FL Neutrophils (%) (Auto) 88.2 % Lymphocytes (%) (Auto) 1.3 % Monocytes (%) (Auto) 10.4 % Eosinophils (%) (Auto) 0.0 % Basophils (%) (Auto) 0.1 % Neutrophils # (Auto) 13.7 TH/MM3 Lymphocytes # (Auto) 0.2 TH/MM3 Monocytes # (Auto) 1.6 TH/MM3 Eosinophils # (Auto) 0.0 TH/MM3 Basophils # (Auto) 0.0 TH/MM3 CBC Comment DIFF FINAL Differential Comment Test 05/06/17 11:20 Blood Urea Nitrogen 58 MG/DL Creatinine 3.60 MG/DL Random Glucose 82 MG/DL Calcium Level 7.5 MG/DL Sodium Level 121 MEQ/L Potassium Level 6.0 MEQ/L Chloride Level 90 MEQ/L Carbon Dioxide Level 15.5 MEQ/L Anion Gap 16 MEQ/L Estimat Glomerular Filtration Rate 16 ML/MIN Imaging Last Impressions Cholangiopancreatography MRI 05/06/17 0000 Signed Impressions: Service Date/Time: Saturday, May 06, 2017 08:49 - CONCLUSION: 1. Suspected pancreatic head mass with extensive metastatic disease throughout the liver. 2. No intra-articular hepatic biliary duct dilatation. 3. Abdominal ascites. Angelito Kohli MD Abdomen/Pelvis CT 05/04/17 1616 Signed Impressions: Service Date/Time: April 18:23 - CONCLUSION: 1. 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 There appears to be adenopathy in the upper abdomen and definite metastatic lesions in the liver. There is also ascites seen throughout the peritoneal cavity. 2. Moderate right pleural effusion and mild left pleural effusion. 3. 4 mm nonobstructing left renal stone. Quincy Higuera MD Abdomen Ultrasound 05/04/17 0000 Signed Impressions: Service Date/Time: April 22:53 - CONCLUSION: 1. Similar to what was demonstrated and reported on the CT from 4 hours ago, the liver as abnormal with findings suspicious for metastatic disease. Although the pancreas was not identified on this examination the prior study demonstrated features suspicious for a pancreas mass/neoplasm. 2. There is free fluid within the abdomen around the liver and spleen and there are bilateral pleural effusions. 3. Diffuse gallbladder wall edema. Quincy Gabriel MD Objective Remarks GENERAL: Elderly gentleman, confused, in moderate distress SKIN: Warm and dry. HEAD: Normocephalic. EYES: No scleral icterus. No injection or drainage. NECK: Supple, trachea midline. No JVD or lymphadenopathy. CARDIOVASCULAR: Regular rate and rhythm without murmurs, gallops, or rubs. RESPIRATORY: Breath sounds equal bilaterally. No accessory muscle use. GASTROINTESTINAL: Abdomen soft, nondistended, tender to palpation in mid epigastrium MUSCULOSKELETAL: No cyanosis, or edema. BACK: Nontender without obvious deformity. NEURO EXAM: Mental Status: The patient is alert and confused, agitated with normal speech. Cranial Nerves: Visual camacho normal in all quadrants. Pupils are round, reactive to light. Reflexes: Biceps, patellar, and Achilles are 2/4 bilaterally. No clonus. A/P Assessment and Plan Altered mental status - Severe hyponatremia - ICU psychosis - 3% normal saline - When necessary meds for agitation Elevated transaminases - Underlying metastatic liver disease - Extensive workup per gastroenterology Severe hyponatremia - likely due to dehydration - hypertonic saline 3% at 25 mL per hour - IV fluids per nephrology, being started on bicarbonate drip for metabolic acidosis Acute kidney injury - dehydration due to nausea vomiting - possible hepatorenal syndrome, - IV fluids - Nephrology input is appreciated - Urology consulted for Nieves catheterization for accurate intake output Nausea and vomiting - Zofran when necessary - improved Atrial fibrillation with RVR - New onset - Volume loss - Rate controlled with by mouth Cardizem - Continue aspirin 325 mg - Lovenox 40 mg subcutaneous daily - Cardiology consult with Dr. Hewitt appreciated Pancreatic cancer with metastasis to the liver - Management per Dr. Schafer - Currently too ill for chemotherapy BPH - Finasteride DVT GI prophylaxis - Teds SCDs - Subcutaneous Lovenox - Pepcid Patient is critically ill with multiorgan failure with stage IV pancreatic cancer. Prognosis is extremely poor. Remains a full CODE STATUS at this time. Critical Care: The total critical care time was 35 minutes. Time to perform other separately billable procedures was not included in the critical care time. Brock Nunes MD May 06, 2017 13:00
--- NOTE | 2017-05-06 16:27 | HHI.GIFU ---
GI Follow-up Note Consult Follow-up Subjective: Patient laying in bed sleeping.Was moved to the unit overnight.He is sleeping, not arousable, received Ativan last night .He had MRCP -no dilatation of biliary tree, lfts pending.Palliative care consult called.Also difficulty urinating, had a Nieves inserted by urology/Also renal consul obtained due to elevated bun/cr , k, low sodium and elevated cortisol. Objective: PHYSICAL EXAMINATION: Vitals signs stable No fever Vital Signs Date Time Temp Pulse Resp B/P (MAP) Pulse Ox O2 Delivery O2 Flow Rate FiO2 05/06/17 14:00 91 05/06/17 12:00 98.0 91 24 97/61 (73) 95 05/06/17 12:00 80 05/06/17 10:00 69 HEENT: Pupils round and reactive to light; normocephalic; atraumatic; no jaundice. Throat is clear. NECK: Neck is supple, no JVD, no lymphadenopathy. CHEST: Chest is clear to auscultation and percussion. CARDIAC: Regular rate and rhythm with no murmur gallop or rubs. ABDOMEN: Soft, nondistended, nontender; no hepatosplenomegaly; bowel sounds are present in all four quadrants. EXTREMITIES: No clubbing, cyanosis, or edema. SKIN: Normal; no rash; no jaundice. 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, not arousable, responding to painful stimuli Available Data (labs, X- Rays, Procedues) : Laboratory Tests Test 05/04/17 16:38 05/04/17 22:05 05/05/17 06:27 05/05/17 11:51 White Blood Count 9.3 TH/MM3 9.9 TH/MM3 Red Blood Count 3.82 MIL/MM3 3.61 MIL/MM3 Hemoglobin 11.6 GM/DL 11.1 GM/DL Hematocrit 34.2 % 32.3 % Mean Corpuscular Volume 89.6 FL 89.6 FL Mean Corpuscular Hemoglobin 30.3 PG 30.7 PG Mean Corpuscular Hemoglobin Concent 33.8 % 34.2 % Red Cell Distribution Width 15.6 % 15.3 % Platelet Count 241 TH/MM3 203 TH/MM3 Mean Platelet Volume 7.7 FL 8.2 FL Neutrophils (%) (Auto) 90.3 % 87.7 % Lymphocytes (%) (Auto) 3.7 % 3.8 % Monocytes (%) (Auto) 5.9 % 8.4 % Eosinophils (%) (Auto) 0.0 % 0.0 % Basophils (%) (Auto) 0.1 % 0.1 % Neutrophils # (Auto) 8.4 TH/MM3 8.7 TH/MM3 Lymphocytes # (Auto) 0.3 TH/MM3 0.4 TH/MM3 Monocytes # (Auto) 0.5 TH/MM3 0.8 TH/MM3 Eosinophils # (Auto) 0.0 TH/MM3 0.0 TH/MM3 Basophils # (Auto) 0.0 TH/MM3 0.0 TH/MM3 CBC Comment DIFF FINAL DIFF FINAL Differential Comment Prothrombin Time 14.7 SEC Prothromb Time International Ratio 1.5 RATIO Blood Urea Nitrogen 35 MG/DL 37 MG/DL 40 MG/DL Creatinine 1.77 MG/DL 1.75 MG/DL 2.15 MG/DL Random Glucose 138 MG/DL 122 MG/DL 115 MG/DL Total Protein 6.4 GM/DL 6.0 GM/DL 5.9 GM/DL Albumin 3.3 GM/DL 3.2 GM/DL 3.2 GM/DL Calcium Level 8.7 MG/DL 8.2 MG/DL 8.4 MG/DL Alkaline Phosphatase 274 U/L 245 U/L 251 U/L Aspartate Amino Transf (AST/SGOT) 696 U/L 1059 U/L 1286 U/L Alanine Aminotransferase (ALT/SGPT) 837 U/L 1233 U/L 1531 U/L Total Bilirubin 2.4 MG/DL 2.5 MG/DL 3.2 MG/DL Sodium Level 120 MEQ/L 120 MEQ/L 120 MEQ/L Potassium Level 4.8 MEQ/L 5.1 MEQ/L 4.9 MEQ/L Chloride Level 86 MEQ/L 88 MEQ/L 87 MEQ/L Carbon Dioxide Level 23.2 MEQ/L 21.5 MEQ/L 20.8 MEQ/L Anion Gap 11 MEQ/L 11 MEQ/L 12 MEQ/L Estimat Glomerular Filtration Rate 37 ML/MIN 37 ML/MIN 29 ML/MIN Lipase 37 U/L 31 U/L Direct Bilirubin 1.1 MG/DL Indirect Bilirubin 1.4 MG/DL Thyroid Stimulating Hormone 3rd Gen 4.120 uIU/ML Test 05/05/17 11:57 05/05/17 15:48 12/1/17 16:24 05/05/17 16:50 Blood Urea Nitrogen 40 MG/DL 43 MG/DL Creatinine 2.33 MG/DL 2.59 MG/DL Random Glucose 112 MG/DL 115 MG/DL Calcium Level 8.5 MG/DL 8.5 MG/DL Sodium Level 118 MEQ/L 119 MEQ/L Potassium Level 5.0 MEQ/L 5.2 MEQ/L Chloride Level 88 MEQ/L 87 MEQ/L Carbon Dioxide Level 17.7 MEQ/L 17.3 MEQ/L Anion Gap 12 MEQ/L 15 MEQ/L Estimat Glomerular Filtration Rate 27 ML/MIN 24 ML/MIN Ammonia 22 MCMOL/L Total Creatine Kinase 258 U/L Troponin I 0.09 NG/ML Iron Level 47 MCG/DL Total Iron Binding Capacity 281 MCG/DL Percent Iron Saturation 16.7 % Ferritin 3723 NG/ML Tumor Marker Alpha Fetoprotein 2.8 NG/ML Acetaminophen Level LESS THAN 2.0 MCG/ML Test 05/05/17 18:10 05/05/17 20:27 05/05/17 21:30 05/05/17 23:08 Urine Random Creatinine 143.3 MG/DL Urine Random Sodium LESS THAN 5 MEQ/L Random Cortisol 223.9 MCG/DL Nasal Screen MRSA (PCR) MRSA NOT DETECTED Blood Urea Nitrogen 52 MG/DL Creatinine 3.24 MG/DL Random Glucose 107 MG/DL Calcium Level 8.1 MG/DL Sodium Level 121 MEQ/L Potassium Level 5.0 MEQ/L Chloride Level 88 MEQ/L Carbon Dioxide Level 15.1 MEQ/L Anion Gap 18 MEQ/L Estimat Glomerular Filtration Rate 18 ML/MIN Test 05/06/17 03:15 05/06/17 11:20 White Blood Count 15.5 TH/MM3 Red Blood Count 3.49 MIL/MM3 Hemoglobin 10.7 GM/DL Hematocrit 31.8 % Mean Corpuscular Volume 91.0 FL Mean Corpuscular Hemoglobin 30.5 PG Mean Corpuscular Hemoglobin Concent 33.6 % Red Cell Distribution Width 15.2 % Platelet Count 154 TH/MM3 Mean Platelet Volume 8.2 FL Neutrophils (%) (Auto) 88.2 % Lymphocytes (%) (Auto) 1.3 % Monocytes (%) (Auto) 10.4 % Eosinophils (%) (Auto) 0.0 % Basophils (%) (Auto) 0.1 % Neutrophils # (Auto) 13.7 TH/MM3 Lymphocytes # (Auto) 0.2 TH/MM3 Monocytes # (Auto) 1.6 TH/MM3 Eosinophils # (Auto) 0.0 TH/MM3 Basophils # (Auto) 0.0 TH/MM3 CBC Comment DIFF FINAL Differential Comment Blood Urea Nitrogen 51 MG/DL 58 MG/DL Creatinine 3.24 MG/DL 3.60 MG/DL Random Glucose 98 MG/DL 82 MG/DL Calcium Level 8.1 MG/DL 7.5 MG/DL Sodium Level 121 MEQ/L 121 MEQ/L Potassium Level 5.6 MEQ/L 6.0 MEQ/L Chloride Level 90 MEQ/L 90 MEQ/L Carbon Dioxide Level 15.1 MEQ/L 15.5 MEQ/L Anion Gap 16 MEQ/L 16 MEQ/L Estimat Glomerular Filtration Rate 18 ML/MIN 16 ML/MIN ASSESSMENT/PLAN: pancreatic cancer stage IV , metastasis to the liver elevated lfts -pattern not indicative of biliary obstruction, more hepatitis like picture-etiology unclear possible metastatic disease, hypotension , medication chronic abdominal pain -secondary pancreatic cancer multiple electrolyte abnormalities- Recommendations if still not able to take po medications please insert ngt lfts today-not done yet ammonia level supportive care agree with palliative care consult It was a pleasure seeing Declan Parker Jr. Thank you for this consult. Entered by: Jana Thurston MD May 06, 2017 16:27
--- NOTE | 2017-05-06 16:50 | PD.ONC.PN ---
Subjective Subjective Remarks Mr. Parker is laying in bed and sleeping. At bedside are his Chuyita, daughter and stepdaughter Mel. Objective Data Date Time Temp Pulse Resp B/P (MAP) Pulse Ox O2 Delivery O2 Flow Rate FiO2 05/06/17 14:00 91 05/06/17 12:00 98.0 91 24 97/61 (73) 95 05/06/17 12:00 80 05/06/17 10:00 69 05/06/17 08:00 98.3 71 22 97/55 (69) 96 05/06/17 08:00 71 05/06/17 07:00 94 Nasal Cannula 2.00 05/06/17 06:00 76 05/06/17 04:00 97.8 68 24 98/54 (69) 95 05/06/17 04:00 68 05/06/17 02:00 71 05/06/17 00:00 75 05/06/17 00:00 97.5 75 28 100/69 (79) 96 05/05/17 22:00 87 05/05/17 21:30 94 Nasal Cannula 2.00 05/05/17 21:01 97 05/05/17 21:00 97.5 74 20 99/55 (70) 90 05/05/17 21:00 92 Nasal Cannula 2.00 05/05/17 18:00 97.5 96 112/66 (81) 05/06/17 05/06/17 05/06/17 07:00 15:00 23:00 Intake Total 1084 ml Output Total 0 ml Balance 1084 ml Result Diagram: 05/06/17 0315 05/06/17 1120 Laboratory Results Laboratory Tests Test 05/05/17 16:50 05/05/17 18:10 05/05/17 20:27 05/05/17 21:30 Blood Urea Nitrogen 43 MG/DL Creatinine 2.59 MG/DL Random Glucose 115 MG/DL Calcium Level 8.5 MG/DL Sodium Level 119 MEQ/L Potassium Level 5.2 MEQ/L Chloride Level 87 MEQ/L Carbon Dioxide Level 17.3 MEQ/L Anion Gap 15 MEQ/L Estimat Glomerular Filtration Rate 24 ML/MIN Iron Level 47 MCG/DL Total Iron Binding Capacity 281 MCG/DL Percent Iron Saturation 16.7 % Ferritin 3723 NG/ML Tumor Marker Alpha Fetoprotein 2.8 NG/ML Acetaminophen Level LESS THAN 2.0 MCG/ML Urine Random Creatinine 143.3 MG/DL Urine Random Sodium LESS THAN 5 MEQ/L Random Cortisol 223.9 MCG/DL Nasal Screen MRSA (PCR) MRSA NOT DETECTED Test 05/05/17 23:08 05/06/17 03:15 05/06/17 11:20 Blood Urea Nitrogen 52 MG/DL 51 MG/DL 58 MG/DL Creatinine 3.24 MG/DL 3.24 MG/DL 3.60 MG/DL Random Glucose 107 MG/DL 98 MG/DL 82 MG/DL Calcium Level 8.1 MG/DL 8.1 MG/DL 7.5 MG/DL Sodium Level 121 MEQ/L 121 MEQ/L 121 MEQ/L Potassium Level 5.0 MEQ/L 5.6 MEQ/L 6.0 MEQ/L Chloride Level 88 MEQ/L 90 MEQ/L 90 MEQ/L Carbon Dioxide Level 15.1 MEQ/L 15.1 MEQ/L 15.5 MEQ/L Anion Gap 18 MEQ/L 16 MEQ/L 16 MEQ/L Estimat Glomerular Filtration Rate 18 ML/MIN 18 ML/MIN 16 ML/MIN White Blood Count 15.5 TH/MM3 Red Blood Count 3.49 MIL/MM3 Hemoglobin 10.7 GM/DL Hematocrit 31.8 % Mean Corpuscular Volume 91.0 FL Mean Corpuscular Hemoglobin 30.5 PG Mean Corpuscular Hemoglobin Concent 33.6 % Red Cell Distribution Width 15.2 % Platelet Count 154 TH/MM3 Mean Platelet Volume 8.2 FL Neutrophils (%) (Auto) 88.2 % Lymphocytes (%) (Auto) 1.3 % Monocytes (%) (Auto) 10.4 % Eosinophils (%) (Auto) 0.0 % Basophils (%) (Auto) 0.1 % Neutrophils # (Auto) 13.7 TH/MM3 Lymphocytes # (Auto) 0.2 TH/MM3 Monocytes # (Auto) 1.6 TH/MM3 Eosinophils # (Auto) 0.0 TH/MM3 Basophils # (Auto) 0.0 TH/MM3 CBC Comment DIFF FINAL Differential Comment Imaging Studies Last 24 hours Impressions Cholangiopancreatography MRI 05/06/17 0000 Signed Impressions: Service Date/Time: Saturday, May 06, 2017 08:49 - CONCLUSION: 1. Suspected pancreatic head mass with extensive metastatic disease throughout the liver. 2. No intra-articular hepatic biliary duct dilatation. 3. Abdominal ascites. Angelito Kohli MD Administered Medications Medications (Trade) Dose Ordered Sig/Eden Route PRN Reason Start Time Stop Time Status Last Admin Dose Admin Diltiazem HCl 125 mg/Sodium Chloride 125 ml @ 5 mls/hr TITRATE PRN IV tachycardia 05/04/17 20:45 05/04/17 21:10 Sodium Chloride (NS Flush) 2 ml BID IV FLUSH 05/05/17 09:00 05/06/17 11:01 Finasteride (Proscar) 5 mg DAILY PO 05/05/17 09:00 05/05/17 08:48 Oxycodone HCl (Roxicodone) 5 mg Q4H PRN PO PAIN 1-10 05/04/17 23:30 05/05/17 18:47 Aspirin (Ecotrin Ec) 325 mg DAILY PO 05/05/17 09:00 05/05/17 08:49 Famotidine (Pepcid) 10 mg BID PO 05/05/17 09:00 05/05/17 21:04 Diltiazem HCl (Cardizem) 30 mg QID PO 05/05/17 13:00 05/05/17 21:04 Objective Remarks GENERAL:frail man sleeping in bed SKIN: Warm and dry. HEAD: Normocephalic. RESPIRATORY: no respiratory distress NEUROLOGICAL: sleeping in bed Assessment/Plan Assessment 1. Metastatic pancreatic cancer: s/p MRCP today with no abnormalities of biliary system. Large volume of metastatic disease in the liver. Discussed with family that patient is nearing the end of life and would benefit from palliative care consult, hospice and DNR/DNI. They wish to continue to follow labs and to discuss with patient when he awakens. They would like to talk with palliative care team. Oncology service will continue to follow. Little Schafer MD May 06, 2017 16:50
[2017-05-06 17:22] LABS: BICARBONATE 17.1 MEQ/L (21.0-32.0); POTASSIUM 5.9 MEQ/L (3.5-5.1)
[2017-05-06 17:36] LABS: TOTAL BILIRUBIN ADULT 4.3 MG/DL (0.2-1.0)
[2017-05-06] MEDS: RIFAXIMIN 550 MG TAB PO SCH (20:19)
[2017-05-06] MEDS: LACTULOSE SYRUP 20 GM/30 ML CUP PO SCH (20:19)
[2017-05-06] MEDS: SODIUM BICARBONATE 8.4% INJ 75 MEQ in SODIUM CHLOR 0.45% 1000 ML INJ 1,000 ML IV SCH (23:23)
[2017-05-07] VITALS (8 sets, daily range): BP systolic 80–115; BP diastolic 55–62; PULSE 110–122; RESP 15–27; TEMP 97.9–98.7; O2SAT 88–93
[2017-05-07 00:05] LABS: BICARBONATE 18.6 MEQ/L (21.0-32.0)
[2017-05-07 00:22] LABS: CALCIUM-PROTEIN CORRECTED 8.1 MG/DL (8.5-10.1); INDIRECT BILIRUBIN 1.4 MG/DL (0.0-0.8); TOTAL BILIRUBIN ADULT 4.8 MG/DL (0.2-1.0)
[2017-05-07] MEDS ORDERED: HYDROmorphone HCL PF 1 MG/ML VIAL IV PRN (02:30)
[2017-05-07 05:02] LABS: BICARBONATE 19.7 MEQ/L (21.0-32.0); POTASSIUM 6.1 MEQ/L (3.5-5.1)
[2017-05-07 05:23] LABS: CALCIUM-PROTEIN CORRECTED 7.8 MG/DL (8.5-10.1)
[2017-05-07] MEDS: RIFAXIMIN 550 MG TAB PO SCH (07:59)
[2017-05-07] MEDS: FINASTERIDE 5 MG TAB PO SCH (08:00)
[2017-05-07] MEDS: LACTULOSE SYRUP 20 GM/30 ML CUP PO SCH (08:01)
[2017-05-07] MEDS: FAMOTIDINE 20 MG TAB PO SCH (08:01)
[2017-05-07] MEDS: ASPIRIN EC 325 MG TABEC PO SCH (08:01)
[2017-05-07] MEDS: SODIUM CHLORIDE 0.9% FLUSH 10 ML FLUSH IV FLUSH SCH (08:02)
[2017-05-07] MEDS: DILTIAZEM HCL 30 MG TAB PO SCH (08:02)
[2017-05-07] MEDS ORDERED: ENOXAPARIN SODIUM 30 MG/0.3 ML SYRINGE SQ SCH (09:00)
[2017-05-07] MEDS: SODIUM BICARBONATE 8.4% INJ 75 MEQ in SODIUM CHLOR 0.45% 1000 ML INJ 1,000 ML IV SCH (09:29)
--- NOTE | 2017-05-07 11:09 | HHI.GIFU ---
Subjective Remarks Pt resting in bed, labored breathing, currently on Venturi mask. He did not awaken for exam. Per pts family at bedside, they just finished talking to hospice and have made the decision to transfer him to hospice today, the plan is to transfer the pt around 1:00 this afternoon. Objective Vitals I&O Vital Signs Date Time Temp Pulse Resp B/P (MAP) Pulse Ox O2 Delivery O2 Flow Rate FiO2 05/07/17 08:15 93 Venturi Mask 6.00 50 05/07/17 08:00 98.3 119 18 80/55 (63) 91 05/07/17 08:00 119 05/07/17 07:00 91 Venturi Mask 50 05/07/17 06:00 120 05/07/17 04:00 110 05/07/17 04:00 97.9 110 16 85/55 (65) 89 05/07/17 02:00 115 05/07/17 00:00 98.0 122 27 115/57 (76) 90 05/07/17 00:00 122 05/06/17 22:00 111 05/06/17 22:00 89 Venturi Mask 50 05/06/17 20:00 98.2 102 16 115/60 (78) 95 05/06/17 20:00 102 05/06/17 19:00 94 Nasal Cannula 2.00 05/06/17 18:00 97 05/06/17 16:00 98.4 94 22 137/67 (90) 95 05/06/17 16:00 94 05/06/17 14:00 91 05/06/17 12:00 98.0 91 24 97/61 (73) 95 05/06/17 12:00 80 I/O 05/06/17 05/06/17 05/06/17 05/07/17 05/07/17 05/07/17 07:00 15:00 23:00 07:00 15:00 23:00 Intake Total 1084 ml 615 ml 671 ml Output Total 0 ml 475 ml 50 ml Balance 1084 ml 140 ml 621 ml Intake Oral 0 ml 0 ml 0 ml IV Total 1084 ml 615 ml 671 ml Output Urine Total 0 ml 475 ml 50 ml # Bowel Movements 0 Laboratory Laboratory Tests Test 05/06/17 11:20 05/06/17 16:35 05/06/17 22:50 05/07/17 03:50 Blood Urea Nitrogen 58 60 61 68 Creatinine 3.60 3.89 4.22 4.53 Random Glucose 82 75 79 84 Calcium Level 7.5 7.1 7.2 7.0 Sodium Level 121 123 122 123 Potassium Level 6.0 5.9 6.0 6.1 Chloride Level 90 91 91 91 Carbon Dioxide Level 15.5 17.1 18.6 19.7 Anion Gap 16 15 12 12 Estimat Glomerular Filtration Rate 16 15 13 12 Total Protein 5.4 5.5 5.5 Albumin 3.0 3.2 Phosphorus Level 7.3 Alkaline Phosphatase 235 258 Aspartate Amino Transf (AST/SGOT) 3296 3293 Alanine Aminotransferase (ALT/SGPT) 3578 4023 Total Bilirubin 4.3 4.8 Direct Bilirubin 3.0 3.4 Protein Corrected Calcium 8.0 8.1 7.8 Ammonia 69 Indirect Bilirubin 1.4 Imaging Last Impressions Cholangiopancreatography MRI 05/06/17 0000 Signed Impressions: Service Date/Time: Saturday, May 06, 2017 08:49 - CONCLUSION: 1. Suspected pancreatic head mass with extensive metastatic disease throughout the liver. 2. No intra-articular hepatic biliary duct dilatation. 3. Abdominal ascites. Angelito Kohli MD Abdomen/Pelvis CT 05/04/17 1616 Signed Impressions: Service Date/Time: April 18:23 - CONCLUSION: 1. 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 There appears to be adenopathy in the upper abdomen and definite metastatic lesions in the liver. There is also ascites seen throughout the peritoneal cavity. 2. Moderate right pleural effusion and mild left pleural effusion. 3. 4 mm nonobstructing left renal stone. Quincy Higuera MD Abdomen Ultrasound 05/04/17 0000 Signed Impressions: Service Date/Time: April 22:53 - CONCLUSION: 1. Similar to what was demonstrated and reported on the CT from 4 hours ago, the liver as abnormal with findings suspicious for metastatic disease. Although the pancreas was not identified on this examination the prior study demonstrated features suspicious for a pancreas mass/neoplasm. 2. There is free fluid within the abdomen around the liver and spleen and there are bilateral pleural effusions. 3. Diffuse gallbladder wall edema. Quincy Gabriel MD Physical Exam HEENT: Normocephalic; atraumatic; no jaundice. CHEST: Diffuse rhonchi, tachypneic, on venturi mask CARDIAC: RRR ABDOMEN: Distended, firm; (+) hepatosplenomegaly SKIN: No jaundice. Assessment and Plan Plan ASSESSMENT: - Acute Hepatitis, unclear etiology. Pt with known pancreatic cancer, was scheduled to start chemotherapy yesterday and was found to have abnormal labs. CT Scan abdomen and pelvis with iv contrast (05/04/17) ---> Pancreatic head mass surrounding the celiac arteries. There appears to be adenopathy in the upper abdomen and definite metastatic lesions in the liver. There is also ascites seen throughout the peritoneal cavity. Moderate right pleural effusion and mild left pleural effusion. 4 mm nonobstructing left renal stone. Hx ETOH abuse, quit drinking heavily 40 years ago. Was still drinking occasionally up until 2 months ago. Unclear etiology, ? shocked liver, medication induced. MRCP (05/06) --> Suspected pancreatic head mass with extensive metastatic disease throughout the liver. No intra-articular hepatic biliary duct dilation. Abdominal ascites. Hepatitis panel, CHI, ASMA , AMA, Alpha-1 antitrypsin, ceruloplasmin pending. Tylenol level negative. [id number] ALT- 4023 AFP-2.8 Iron-47 TIBC-281 %Sat-16.7 Ferritin-3723 - Hepatic encephalopathy- Ammonia-69. Lactulose. Xifaxin - Coagulopathy. PT 14.7, INR 1.5. - Abdominal pain, bloating. 4 month hx of diffuse pressure/bloating. Imaging as above - Decreased appetite, 40 lb weight loss. - MILDRED with severe electrolyte abnormalities. 4.53. Nephrology following. - Atrial fibrillation with RVR. Started on Cardizem gtt. - Stage IV pancreatic cancer with mets to liver. Dx in March 2017. Evaluated at [facility] on April 18 and was told that the first line treatment would be chemotherapy with Gemcitabine and Abraxane x 4 months. Followed here by Dr. Schafer and was scheduled to start chemotherapy 05/04, but was found to have abnormal labs with elevated LFTs and sent to ER. PLAN: - Transfer to hospice today per attending - CHI, AMA, ASMA pending - Hepatitis panel pending - Ceruloplasmin, Alpha 1 Antitrypsin pending - Avoid hepatotoxins - Supportive care Pt seen and examined by Dr. Collier and myself and this note is written on her behalf Gwen Dias May 07, 2017 11:09
[2017-05-07 11:57] LABS: POTASSIUM 6.2 MEQ/L (3.5-5.1)
[2017-05-07 12:37] LABS: CALCIUM-PROTEIN CORRECTED 7.7 MG/DL (8.5-10.1)
--- NOTE | 2017-05-07 12:55 | HHI.NPPN ---
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 Additional Remarks Patient is lethargic and with VM. Objective Data Data Vital Signs Date Time Temp Pulse Resp B/P (MAP) Pulse Ox O2 Delivery O2 Flow Rate FiO2 05/07/17 12:00 98.7 118 15 91/62 (72) 88 05/07/17 12:00 118 05/07/17 10:00 112 05/07/17 08:15 93 Venturi Mask 6.00 50 05/07/17 08:00 98.3 119 18 80/55 (63) 91 05/07/17 08:00 119 05/07/17 07:00 91 Venturi Mask 50 05/07/17 06:00 120 05/07/17 04:00 110 05/07/17 04:00 97.9 110 16 85/55 (65) 89 05/07/17 02:00 115 05/07/17 00:00 98.0 122 27 115/57 (76) 90 05/07/17 00:00 122 05/06/17 22:00 111 05/06/17 22:00 89 Venturi Mask 50 05/06/17 20:00 98.2 102 16 115/60 (78) 95 05/06/17 20:00 102 05/06/17 19:00 94 Nasal Cannula 2.00 05/06/17 18:00 97 05/06/17 16:00 98.4 94 22 137/67 (90) 95 05/06/17 16:00 94 05/06/17 14:00 91 -: 05/06/17 0315 05/07/17 1034 Physical Exam General Appearance Remarks Lethargic in mild resp. distress. Eyes Eye Exam: Pupils Equal Throat Throat Exam: Oral Mucosa [place] & Moist Neck Neck Exam: Neck Supple Pulmonary Resp Exam: Rhonchi, Decreased Bases, Diminished Breath Sounds Gastrointestinal/Abdomen GI Exam: Soft, Non-Tender, Bowel Sounds Present, Distended Extremeties Extremities Exam: Trace Edema Neurologic Neuro Exam: Obtunded, Unresponsive Assessment/Plan Problem List: (1) Acute renal failure ICD Codes: N17.9 - Acute kidney failure, unspecified Plan: Patient has nausea and vomiting and has hyponatremia due to multifactorial reasons, acute renal failure also his multifactorial has dysfunctional liver causing hepatorenal syndrome and nausea and vomiting as well Patient has increase in the Creatinine and K is elevated. Family decided for Hospice and no active treatment. I will sign off from Nephrology. Call again if needed. (2) Hyponatremia ICD Codes: E87.1 - Hypo-osmolality and hyponatremia Status: Acute Plan: As above (3) Pancreatic mass ICD Codes: K86.9 - Disease of pancreas, unspecified Plan: Stage IV pancreatic cancer poor prognosis (4) Liver masses ICD Codes: R16.0 - Hepatomegaly, not elsewhere classified Plan: Liver dysfunction (5) Atrial fibrillation with RVR ICD Codes: I48.91 - Unspecified atrial fibrillation Status: Acute Plan: Continue to monitor on diltiazem Problem Qualifiers (1) Acute renal failure: Qualified Codes: N17.9 - Acute kidney failure, unspecified Eben Hall MD May 07, 2017 12:55
--- NOTE | 2017-05-07 16:07 | HHI.PR ---
Addendum to Inpatient Note Addendum Reason: Additional Documentation Additional Information Came to see patient and his family. He had just left in the elevator to be transferred to the hospice care center. His daughter's were still in the hallway and I expressed my concerns for them and their dad/step mom. Advised them to call if I can be of assistance. Felicia Jackson MD May 07, 2017 16:07
[2017-05-07 17:18] LABS: INDIRECT BILIRUBIN 1.3 MG/DL (0.0-0.8)
== END 2017-05-07 13:17 | disposition hospice, inpatient (51) | DRG 308 ==
LOC: NEPE 15:48 → NEDA 21:07 → UNDOADMIN 21:07 → INTOOBSV 21:10 → NEDA 21:10 → OBSVTOIN 21:29 → HCIS 23:46 → HIME 05-05 21:25
PROVIDERS: ADMIT Family Medicine; ATTEND Family Medicine
DX: I48.91 Unspecified atrial fibrillation (principal); K76.7 Hepatorenal syndrome; J90 Pleural effusion, not elsewhere classified; N17.9 Acute kidney failure, unspecified; C78.7 Secondary malignant neoplasm of liver and intrahepatic bile duct; E87.2 Acidosis; D68.9 Coagulation defect, unspecified; C25.9 Malignant neoplasm of pancreas, unspecified; R18.8 Other ascites; E87.1 Hypo-osmolality and hyponatremia; B17.9 Acute viral hepatitis, unspecified; E86.0 Dehydration; E78.5 Hyperlipidemia, unspecified; K59.00 Constipation, unspecified; N20.0 Calculus of kidney; N40.1 Benign prostatic hyperplasia with lower urinary tract symptoms; Q54.9 Hypospadias, unspecified; R33.8 Other retention of urine; Z51.5 Encounter for palliative care; Z79.82 Long term (current) use of aspirin; Z87.891 Personal history of nicotine dependence; F28 Other psychotic disorder not due to a substance or known physiological condition
CPT/HCPCS: 74177; 74181; 76377; 76700; 80048; 80053; 80074; 80076; 80307; 82103; 82105; 82140; 82248; 82390; 82533; 82550; 82570; 82728; 83520; 83540; 83550; 83690; 84100; 84155; 84300; 84443; 84484; 85025; 85610; 86038; 86255; 87641; 93005; 96361; 96374; 96375; J0171; J0461; J1170; J1650; J2060; J2405; J7030; J7040; Q9967